=== PATIENT | female | born 1960 | race Caucasian/White ===

== ENCOUNTER 2016-06-24 18:01 | Inpatient (IN) | payer OTHER, MEDICAID ==
[~2016-06-24] VITALS: Ht 162.6 cm; Wt 77.1 kg
[2016-06-24 18:01] VITALS: BP 150/85; PULSE 79; RESP 19; TEMP 97.9; O2SAT 100
[2016-06-24 19:05] LABS: BASOPHILS % (AUTO) 0.3 % (0.0-2.0); EOSINOPHILS # (AUTO) 0.4 K/uL (0.0-0.4); EOSINOPHILS % (AUTO) 2.8 % (0.0-4.0); HEMATOCRIT 37.9 % (36-48); HEMOGLOBIN 12.7 g/dL (12.0-16.0); LYMPHOCYTES # (AUTO) 3.7 K/uL (1.0-5.5); LYMPHOCYTES % (AUTO) 26.9 % (20.5-51.5); MEAN CORPUSCULAR HEMOGLOBIN 26 pg (27-31); MEAN CORPUSCULAR HGB CONC 34 % (32-36); MEAN CORPUSCULAR VOLUME 78 fL (79.0-98.0); MONOCYTES # (AUTO) 0.7 K/uL (0.0-1.0); MONOCYTES % (AUTO) 5.3 % (1.7-9.3); NEUTROPHILS # (AUTO) 8.9 K/uL (1.8-7.7); NEUTROPHILS % (AUTO) 64.7 % (40.0-70.0); PLATELET COUNT (AUTO) 316 K/uL (130-430); RED BLOOD CELL COUNT(AUTO) 4.87 MIL/uL (4.2-6.2); RED CELL DISTRIBUTION WIDTH 13.2 % (9.0-15.0); WHITE BLOOD COUNT (AUTO) 13.7 K/uL (4.8-10.8)
[2016-06-24 19:18] LABS: CALCIUM 9.1 mg/dL (8.4-11.0); CREATININE 0.75 mg/dL (0.55-1.30); POTASSIUM 3.1 mmol/L (3.5-5.1)
[2016-06-24 19:25] LABS: ALBUMIN 3.7 g/dL (3.4-4.8); TOTAL BILIRUBIN 0.2 mg/dL (0.0-1.0); TOTAL PROTEIN, SERUM 7.2 g/dL (6.4-8.3)
[2016-06-24 20:26] LABS: BILIRUBIN,URINE NEGATIVE (NEGATIVE); BLOOD, URINE NEGATIVE (NEGATIVE); CLARITY/URINE CLEAR (CLEAR); COLOR,URINE YELLOW (YELLOW); GLUCOSE,URINE NEGATIVE (NEGATIVE); KETONES,URINE NEGATIVE (NEGATIVE); LEUKOCYTE ESTERASE ,URINE NEGATIVE (NEGATIVE); NITRITE, URINE NEGATIVE (NEGATIVE); PROTEIN URINE NEGATIVE (NEGATIVE); UROBILINOGEN,URINE 0.2 (0.2-1.0)
[2016-06-24] MEDS ORDERED: ASPIRIN 81 MG TAB.CHEW PO ONE (21:00)
[2016-06-24] MEDS ORDERED: ASPIRIN 81 MG TAB.CHEW ONE (21:17)
[2016-06-24 21:51] VITALS: BP 140/75; PULSE 63; RESP 18; TEMP 97.3; O2SAT 100
[2016-06-24] MEDS ORDERED: NOR10 PO (22:16)
[2016-06-24] MEDS ORDERED: LIP10 PO (22:16)
[2016-06-24] MEDS ORDERED: MECL-123 PO (22:16)
[2016-06-24] MEDS ORDERED: APIX5TAB PO (22:16)
[2016-06-24] MEDS ORDERED: ALBU8.5H8 INH (22:16)
[2016-06-24] MEDS ORDERED: POTASSIUM CHLORIDE 20 MEQ TAB.PRT.SR PO ONE (22:45)
[2016-06-24] MEDS: NITROGLYCERIN 0.4 MG TAB.SUBL SL PRN (23:31)
[2016-06-24 23:57] VITALS: BP 140/75; PULSE 69; RESP 16; TEMP 97.8; O2SAT 100
[2016-06-25] MEDS ORDERED: MILK OF MAGNESIA 30 ML UDC PO PRN ×2 (01:15→09:15)
[2016-06-25 02:01] VITALS: BP 140/75; PULSE 69
[2016-06-25] MEDS: NITROGLYCERIN 0.4 MG TAB.SUBL SL PRN (03:21)
[2016-06-25 03:57] VITALS: BP 121/75; PULSE 60; RESP 16; TEMP 98.6; O2SAT 98
[2016-06-25 07:20] LABS: CREATINE KINASE, TOTAL 41 U/L (26-192)
[2016-06-25] MEDS: LevALBUTEROL HCL 1.25 MG/0.5 ML *CONC.* VIAL.NEB (XOPENEX CONC.) INH SCH ×3 (07:33→23:00)
[2016-06-25] MEDS: ATORVASTATIN 10 MG TABLET PO SCH (08:55)
[2016-06-25] MEDS: ENOXAPARIN SODIUM 40 MG/0.4 ML SYRINGE SUBCUT SCH (08:56)
[2016-06-25] MEDS: amLODIPine BESYLATE 10 MG TABLET PO SCH (08:56)
[2016-06-25] MEDS: ASPIRIN 81 MG TAB.CHEW PO SCH (08:56)
[2016-06-25 11:26] VITALS: BP 125/80; PULSE 64; RESP 19; TEMP 97; O2SAT 100
[2016-06-25 15:42] VITALS: BP 121/74; PULSE 72; RESP 16; TEMP 97.8; O2SAT 100
[2016-06-25 19:45] VITALS: BP 130/75; PULSE 70; RESP 18; TEMP 98.1; O2SAT 96
[2016-06-26 00:53] VITALS: BP 133/79; PULSE 68; RESP 17; TEMP 96.6; O2SAT 100
[2016-06-26 03:36] VITALS: BP 138/64; PULSE 57; RESP 18; TEMP 97.4; O2SAT 98
[2016-06-26 07:39] LABS: CALCIUM 9.1 mg/dL (8.4-11.0); CREATININE 0.6 mg/dL (0.55-1.30); POTASSIUM 4.4 mmol/L (3.5-5.1)
[2016-06-26 07:43] LABS: BASOPHILS # (AUTO) 0.1 K/uL (0.0-0.2); BASOPHILS % (AUTO) 0.6 % (0.0-2.0); EOSINOPHILS # (AUTO) 0.4 K/uL (0.0-0.4); EOSINOPHILS % (AUTO) 4.4 % (0.0-4.0); HEMATOCRIT 36.9 % (36-48); HEMOGLOBIN 12.3 g/dL (12.0-16.0); LYMPHOCYTES # (AUTO) 2.4 K/uL (1.0-5.5); MEAN CORPUSCULAR HEMOGLOBIN 26 pg (27-31); MEAN CORPUSCULAR HGB CONC 33 % (32-36); MEAN CORPUSCULAR VOLUME 77 fL (79.0-98.0); MONOCYTES # (AUTO) 0.5 K/uL (0.0-1.0); MONOCYTES % (AUTO) 5.5 % (1.7-9.3); NEUTROPHILS # (AUTO) 6.1 K/uL (1.8-7.7); NEUTROPHILS % (AUTO) 64.5 % (40.0-70.0); PLATELET COUNT (AUTO) 296 K/uL (130-430); RED BLOOD CELL COUNT(AUTO) 4.77 MIL/uL (4.2-6.2)
[2016-06-26] MEDS: LevALBUTEROL HCL 1.25 MG/0.5 ML *CONC.* VIAL.NEB (XOPENEX CONC.) INH SCH ×2 (07:46→16:20)
[2016-06-26 08:07] VITALS: BP 119/70; PULSE 62; RESP 18; TEMP 97.4; O2SAT 98
[2016-06-26 08:18] LABS: WHITE BLOOD COUNT (AUTO) 9.5 K/uL (4.8-10.8)
[2016-06-26] MEDS: ATORVASTATIN 10 MG TABLET PO SCH (08:26)
[2016-06-26] MEDS: ASPIRIN 81 MG TAB.CHEW PO SCH (08:26)
[2016-06-26] MEDS: amLODIPine BESYLATE 10 MG TABLET PO SCH (08:26)
[2016-06-26] MEDS: ENOXAPARIN SODIUM 40 MG/0.4 ML SYRINGE SUBCUT SCH (08:27)
[2016-06-26 11:31] VITALS: BP 132/63; PULSE 69; RESP 19; TEMP 97.8; O2SAT 95
[2016-06-26 14:26] VITALS: BP 132/63; PULSE 69; RESP 19; TEMP 97.8; O2SAT 95
[2016-06-26 15:30] VITALS: BP 127/66; PULSE 65; RESP 18; TEMP 97; O2SAT 97
== END 2016-06-26 16:20 | disposition home or self-care (01) | DRG 206 ==
LOC: SED 18:01 → STU 21:32
PROVIDERS: ADMIT Family Medicine; ATTEND Family Medicine
DX: M94.0 Chondrocostal junction syndrome [Tietze] (principal); E78.5 Hyperlipidemia, unspecified; I10 Essential (primary) hypertension; J45.909 Unspecified asthma, uncomplicated; F31.9 Bipolar disorder, unspecified; Z59.0 Homelessness; Z79.899 Other long term (current) drug therapy; Z82.49 Family history of ischemic heart disease and other diseases of the circulatory system; Z83.3 Family history of diabetes mellitus; Z88.1 Allergy status to other antibiotic agents; Z88.8 Allergy status to other drugs, medicaments and biological substances
CPT/HCPCS: 36415; 71010; 80048; 80053; 80061; 81003; 81025; 82550-TC; 84484; 85025; 85379; 85610-TC; 85730-TC; 93005; 94640; 94760; 99285; J1650

== ENCOUNTER 2016-11-04 23:17 | Inpatient (IN) | payer OTHER, MEDICAID ==
[~2016-11-04] VITALS: Ht 170.2 cm; Wt 76.5 kg
[~2016-11-04 23:17] MED LIST: ALBU8.5H8 INH; APIX5TAB PO; LIP10 PO; MECL-123 PO; NOR10 PO
[2016-11-04 23:20] VITALS: BP_SYST 136
--- NOTE | 2016-11-04 23:24 | NUR ---
Placed in room 1 . Placed on steel pan form placing supervisor, blood pressure machine and pulse oximeter. To gown for exam. Side rails up. Report given to Rigoberto TELLEZ.
--- NOTE | 2016-11-04 23:25 | NUR ---
Pt states having L side pain in chest area since 1800 this evening. Pt states pain is sharp, pain scale 7/10 that radiates down to L arm. Pt denies SOB at this time. Pt able to ambulate without assistance and without signs of SOB. Pt denies any other complaints. Addendum: 11/05/16 at 0424 by [email or web address] pt states onset of chest pain occurred while at rest before ER visit.
--- NOTE | 2016-11-04 23:26 | NUR ---
ER MD Loveaw at bedside for evaluation
[2016-11-04] MEDS ORDERED: MORPHINE 4 MG/ML INJ. SYRINGE IVP ONE (23:35)
[2016-11-04] MEDS ORDERED: NITROGLYCERIN 1 INCH (GM) OINT. TP ONE (23:35)
--- NOTE | 2016-11-04 23:35 | NUR ---
attempted to place # 20 gauge angiocath to R AC. Use of asceptic technique. IV attempt unsuccessful, catheter removed and intact with gauze and tape placed over site. Patient tolerated well.
--- NOTE | 2016-11-04 23:40 | NUR ---
20 gauge angiocath placed to left AC. Use of asceptic technique. Opsite placed over site. Blood return noted. Blood for lab drawn from site. Flushed with 10 cc of normal saline. No evidence of infiltration noted. Patient tolerated well.
[2016-11-05] VITALS (7 sets, daily range): BP systolic 119–175
[2016-11-05 00:06] LABS: BASOPHILS % (AUTO) 0.3 % (0.0-2.0); EOSINOPHILS # (AUTO) 0.5 K/uL (0.0-0.4); EOSINOPHILS % (AUTO) 4.6 % (0.0-4.0); HEMATOCRIT 36.3 % (36-48); HEMOGLOBIN 12.2 g/dL (12.0-16.0); LYMPHOCYTES # (AUTO) 2.9 K/uL (1.0-5.5); LYMPHOCYTES % (AUTO) 26.5 % (20.5-51.5); MEAN CORPUSCULAR HEMOGLOBIN 26 pg (27-31); MEAN CORPUSCULAR HGB CONC 34 % (32-36); MEAN CORPUSCULAR VOLUME 78 fL (79.0-98.0); MONOCYTES # (AUTO) 0.6 K/uL (0.0-1.0); MONOCYTES % (AUTO) 5.6 % (1.7-9.3); NEUTROPHILS # (AUTO) 6.9 K/uL (1.8-7.7); PLATELET COUNT (AUTO) 312 K/uL (130-430); RED BLOOD CELL COUNT(AUTO) 4.67 MIL/uL (4.2-6.2); RED CELL DISTRIBUTION WIDTH 13.4 % (9.0-15.0); WHITE BLOOD COUNT (AUTO) 10.9 K/uL (4.8-10.8)
[2016-11-05 00:12] LABS: CALCIUM 9.6 mg/dL (8.4-11.0); CREATININE 0.71 mg/dL (0.55-1.30); POTASSIUM 3.1 mmol/L (3.5-5.1)
[2016-11-05 00:18] LABS: ALBUMIN 3.7 g/dL (3.4-4.8); TOTAL BILIRUBIN 0.2 mg/dL (0.0-1.0); TOTAL PROTEIN, SERUM 7.2 g/dL (6.4-8.3)
[2016-11-05 00:19] LABS: PROTHROMBIN TIME 10.8 SECS (9.5-12.5)
--- NOTE | 2016-11-05 00:48 | NUR ---
Medication reconciliation completed with information provided by patient. Any prior medication reconciliation on file was reviewed and corrected.
--- NOTE | 2016-11-05 01:20 | NUR ---
Patient will be admitted to care of Dr. Puga. Admitted to tele unit. Will go to room 110 A. Belongings list completed. Summary report printed. Report given to ROSALINDA Lizarraga. Addendum: 11/05/16 at 0425 by MARCOS Pt admitted to tele unit with ROSALINDA Franklin and ROSALINDA Parsons with ACLS protocols. Addendum: 11/05/16 at 0558 by MARCOS Amendment undone in ED - 11/05/16 at 0559 by MARCOS Pt admitted to tele unit with ROSALINDA Franklin and ROSALINDA Parsons via skye with ACLS protocols.
--- NOTE | 2016-11-05 01:33 | NUR ---
Admission Note Received patient from ER with diagnosis of Chest Pain. Initial Plan of Care discussed-patient verbalized understanding. Family at bedside. Oriented to room, call light, pain management and safety.
--- NOTE | 2016-11-05 01:35 | NUR ---
ADMISSION NOTE Received patient from ER via skye, received report from Rigoberto-ROSALINDA. Patient admitted with diagnosis of chest pain. Pt is alerted and oriented x4. Pt denies any chest pain, pain,sob, or any acute distress. Vital signs 97.0, 18, 149/77,76, p3kxl=74% r/a. Saline zara of left A/c #20 patent after flushed w/ NS, no s/s any infiltration, drsg cdi. Skin intact. Lung sounds clear throughout all lobes. Abdomen soft & distended, BS present. Bebo lower extrem-pulses present and no edema. All safety measures in place. Patient oriented to hospital routine, call light, toileting and safety-patient verbalized understanding. Discussed poc,all safety measures, informed not to get out bed by self or experiencing any chest pain,pain,sob,or any distress to use call light for assistance, pt verbalized understanding. Fall precaution in place. Bed alarm in place, bed low position, side rail x2. Call light w/in reach. Continue to monitor pt.
--- NOTE | 2016-11-05 03:03 | NUR ---
Consult Called Reason for consultation: Chest Pain Person who was notified: Timothy Consulting Physician: Gabriel Bland MD (Dr. Hale spa concierge) Consulting Specialty: Cardio Order by Dr Puga
--- NOTE | 2016-11-05 04:12 | NUR ---
ROUNDS; -Pt is resting. No s/s any chest pain,sob,or any acute distress noted. Vital signs stable. Fall precaution in place. Bed alarm in place, bed low position, side rail x2. Call light w/in reach. Continue to monitor pt.
--- NOTE | 2016-11-05 06:38 | NUR ---
CLOSING NOTE: DR. SCHAFFER INFORMED AND AWARED OF K=3.1, ORDERED KCL 40MEQ PO X1 -Dr. Schaffer just assessed pt at bedside and ordered KCL 40MEQ po x1. -Will give KCL 40MEQ po x1 when pharmacist puts in the EMAR. Pt is alerted and oriented. Pt denies any chest pain, pain,sob, or any acute distress. Saline zara of left A/c #20 patent after flushed w/ NS, no s/s any infiltration, drsg cdi. All safety measures in place. Fall precaution in place. Bed alarm in place, bed low position, side rail x2. Call light w/in reach. Will endorse to oncoming nurse to continue care.
[2016-11-05] MEDS ORDERED: MECLIZINE HCL 25 MG TABLET (ANITVERT) PO PRN (06:45)
[2016-11-05] MEDS ORDERED: POTASSIUM CHLORIDE 20 MEQ TAB.PRT.SR PO ONE ×2 (06:45→11:00)
[2016-11-05] MEDS ORDERED: TEMAZEPAM 15 MG CAPSULE PO PRN (07:00)
[2016-11-05] MEDS ORDERED: ACETAMINOPHEN 325 MG TABLET PO PRN (07:00)
[2016-11-05] MEDS ORDERED: NITROGLYCERIN 0.4 MG TAB.SUBL SL PRN (07:00)
[2016-11-05] MEDS ORDERED: MAG-AL HYDROX/SIMETH 30 ML UDC PO PRN (07:00)
[2016-11-05 07:26] LABS: CALCIUM 8.6 mg/dL (8.4-11.0); CREATININE 0.54 mg/dL (0.55-1.30)
--- NOTE | 2016-11-05 08:00 | NUR ---
Opening notes, seen pt in bed, pt is aaox4, denies chest pain. no sob. no distress. pt is sleepy but wakes up to light touch andvoice. bp and rr wnl, heart rate is low at 50, o2 sat is 98% on room air. call light in reach, bed in low position. safety precaution in place. will cont to monitor.
[2016-11-05] MEDS: amLODIPine BESYLATE 10 MG TABLET PO SCH ×2 (09:00→10:02)
[2016-11-05] MEDS ORDERED: NON-FORMULARY MEDICATION (Apixaban (Eliquis) 5 MG) PO SCH (09:00)
[2016-11-05] MEDS: PANTOPRAZOLE SODIUM 40 MG TAB PO SCH (09:58)
[2016-11-05] MEDS: ASPIRIN 81 MG TABLET(ECOTRIN) PO SCH (09:59)
[2016-11-05] MEDS: ATORVASTATIN 10 MG TABLET PO SCH ×2 (09:59→10:03)
--- NOTE | 2016-11-05 10:00 | NUR ---
Rounding notes, seen pt in bed, sleeping, wakes up to light touch and voice. no chest pain. call light in reach, bed in low position. safety precaution in place. will cont to monitor.
--- NOTE | 2016-11-05 12:00 | NUR ---
Rounding notes, seen pt in bed, sleeping, wakes up to light touch and voice. no chest pain. offered lunch and medications. call light in reach, bed in low position. safety precaution in place. will cont to monitor.
--- NOTE | 2016-11-05 14:00 | NUR ---
Rounding notes, seen pt in bed, sleeping, no chest pain. offered lunch and medications. call light in reach, bed in low position. safety precaution in place. will cont to monitor.
--- NOTE | 2016-11-05 15:30 | NUR ---
FOR 1600 V/S BP WAS 171/50 RN WINTER WAS NOTIFIED AND AWARE ALSO STATED THAT WAS OK.
--- NOTE | 2016-11-05 18:00 | NUR ---
Rounding Notes; Pt in bed, eating dinner, no c/o pain no sob, no distress. call light in reach, bed in low position. safety precaution in place. will cont to monitor.
--- NOTE | 2016-11-05 19:00 | NUR ---
CLOSING NOTES, PT REMAINED AAO THIS SHIFT, NO SOB, NO DISTRESS, NO C/O CHEST PAIN. NO UNTOWARD INCIDENT. DR MENDOZA SEEN PATIENT. ALL MEDS OFFERED AND TAKEN. WILL ENDORSE TO NIGHT RN.
--- NOTE | 2016-11-05 19:30 | NUR ---
initial note pt. received in bed, upset. states she asked for a new dinner tray because her meat was pink and never received one. informed pt . that dietary services are no longer here, and offered pt. a sandwich, along with other snacks that we have on the floor. pt . was upset and started crying stating that she does not want a sandwich. informed house registry rn of the situation. was able to provide me with a new dinner tray. pt. was content after being provided with a new tray. told patient i would allow her to eat her dinner and come back in 15 minutes to check her vital signs and do her assessment. pt. agreed. safety and fall precautions in place, call light in reach.
--- NOTE | 2016-11-05 19:45 | NUR ---
rn notes pt. finished her dinner tray that was provided. content, and on the phone. no s/s of sob or distress noted. pt. denies pain. vital signs assessed, all within normal limits. iv access noted to left ac, saline lock. no redness or swelling to the site. pt. states she is able to ambulate with steady gait. educated the pt. on the use of the call light and encouraged her to call for any assistance. verbalizes understanding. plan of care has been discussed with the patient. verbalizes understanding. will continue to monitor for any changes. safety and fall precautions are in place. call light in reach, bed in lowest locked position. pt. does not want the alarm on at this time.
--- NOTE | 2016-11-05 22:29 | NUR ---
rounds pt. sitting up in bed with headphones in ears. no signs of distress noted. no complaints at this time. pt. denies pain. sinus rhythm on the monitor. will continue to monitor for changes. pt. encouraged to use call light for any assistance. safety and fall precautions in place, call light in reach, bed in lowest locked position.
--- NOTE | 2016-11-06 00:03 | NUR ---
rounds pt. resting in bed watching tv on her computer. allowed patient time to express feelings and concerns. no s/s of sob or distress noted. pt. denies pain. scds at the bedside, pt. does not wish to use them. educated pt. on their use, pt still refuses. encouraged pt. to call for assistance. will cont. to monitor. safety and fall precautions in place. call light in reach.
[2016-11-06 00:07] VITALS: BP_SYST 139
--- NOTE | 2016-11-06 02:20 | NUR ---
rounds pt. resting in bed with eyes closed. chest rise and fall noted. no s/s of sob or distress. no facial grimacing indicating pain. will cont. to monitor for changes. safety and fall precautions in place. call light in reach.
[2016-11-06 04:10] VITALS: BP_SYST 134
--- NOTE | 2016-11-06 06:42 | NUR ---
closing notes pt. resting in bed at this time. no signs of distress. pt. denies pain. iv abx were given this am, no adverse reactions noted. all necessary needs were met throughout the shift. safety and fall precautions were maintained. will endorse care to am nurse. call light in reach, bed alarm on.
[2016-11-06 07:33] VITALS: BP_SYST 132
[2016-11-06 07:38] LABS: CALCIUM 9.2 mg/dL (8.4-11.0); CREATININE 0.64 mg/dL (0.55-1.30); POTASSIUM 4.5 mmol/L (3.5-5.1)
--- NOTE | 2016-11-06 07:46 | NUR ---
opening notes, seen pt in room, sitting on bed, pt is aaox3, denies pain. no sob. no distress. vitals wnl, no fever. pt eating breakfast, call light in reach, bed in low position. safety precation in place. told patient to call for assist and pain meds. will cont to monitor.
[2016-11-06] MEDS: PANTOPRAZOLE SODIUM 40 MG TAB PO SCH (08:05)
[2016-11-06] MEDS: amLODIPine BESYLATE 10 MG TABLET PO SCH (08:06)
[2016-11-06] MEDS: ATORVASTATIN 10 MG TABLET PO SCH (08:06)
[2016-11-06] MEDS: ASPIRIN 81 MG TABLET(ECOTRIN) PO SCH (08:06)
--- NOTE | 2016-11-06 10:00 | NUR ---
ROUNDING NOTES, PT IN BED, RESTING COMFORTABLY, NO C/O PAIN. NO SOB, NO DISTRESS. CALL LIGHT IN REACH, BED IN LOW POSITION. WILL CONT TO MONITOR.
--- NOTE | 2016-11-06 10:30 | NUR ---
SUZIE DC PLANNING: MET WITH Pt IN ROOM Pt REQUESTED WHETHER CM WOULD BE ABLE TO PROVIDE HER WITH FUNDING AND TRANSPORTATION TO STORE SO SHE COULD PURCHASE CLOTHING FOR ATTENDING HER SON'S [facility] THIS EVENING AT 5 P.M. IN [place]. Pt STATED SHE WOULD NEED HELP GETTING TO [facility] IN [place] [place] FOR HER DAUGHTER TO PICK HER UP TO TAKE TO [facility]; SHE SAID A BUS PASS WOULD BE HELPFUL SINCE CM EDUCATED THAT DISTANCE IS TOO FAR FOR [employer]. Pt STATED HER DAUGHTER COULD NOT PICK HER UP AT HOSPITAL BECAUSE SHE DOESN'T DRIVE DUE TO EPILEPSY; AND, HER WAS UNWILLING TO DRIVE THE EXTRA DISTANCE. CM DISCUSSED Pt's REQUEST WITH DIRECTOR/NILESH Ramon AND PROFESSOR OF PUBLIC ADMINISTRATION/MARCIAL; AND, ALSO CHECKED WITH SECURITY TO ASCERTAIN IF THERE MIGHT BE AVAILABLE CLOTHES THAT Pt MIGHT HAVE (THERE WAS NOTHING SUITABLE). SUZIE UPDATED Pt ABOUT LIMITED OPTIONS TO ASSIST WITH TRANSPORTATION AND/OR CLOTHING FOR HER. Pt STATED IT WOULD ONLY COST HER $0.75 TO GO TO [facility], CM PROVIDED Pt WITH A DOLLAR FOR THE BUS RIDE TO [facility] TO MEET HER DAUGHTER.
[2016-11-06 12:00] VITALS: BP_SYST 134
--- NOTE | 2016-11-06 12:00 | NUR ---
ROUNDING NOTES, PT IN BED, EATING LUNCH, NO C/O PAIN. NO SOB, NO DISTRESS. CALL LIGHT IN REACH, BED IN LOW POSITION. WILL CONT TO MONITOR.
--- NOTE | 2016-11-06 13:15 | NUR ---
D/C Patient Patient given medication reconciliation form and TRANSITIONAL TO HOME CARE instructions. Exit Care provided. Patient verbalized understanding. MD discussed with patient the results and treatment provided. Ambulatory with steady gait for discharge to home. Patient in stable condition, ID band removed. IV catheter removed, intact and dressing applied, no active bleeding. Rx of given. Patient educated on pain management. All belongings sent with patient.
[2016-11-06 13:38] VITALS: BP_SYST 152
--- NOTE | 2016-11-06 14:00 | NUR ---
ROUNDING NOTES, PT IN SHOWER, TAKING SHOWER.
--- NOTE | 2016-11-06 14:20 | NUR ---
PT TOOK SHOWER WITH NO UNTOWARD INCIDENT. PT NOW DRESSED UP READY TO GO HOME, WAITING FOR FAMILY TO PICK HER UP.
== END 2016-11-06 15:10 | disposition home or self-care (01) | DRG 866 ==
LOC: SED 23:17 → STU 11-05 00:52
PROVIDERS: ADMIT Internal Medicine; ATTEND Internal Medicine
DX: B34.9 Viral infection, unspecified (principal); E87.0 Hyperosmolality and hypernatremia; E87.6 Hypokalemia; I10 Essential (primary) hypertension; F31.9 Bipolar disorder, unspecified; J45.909 Unspecified asthma, uncomplicated; E78.5 Hyperlipidemia, unspecified; Z86.711 Personal history of pulmonary embolism; Z79.82 Long term (current) use of aspirin; Z88.0 Allergy status to penicillin; Z88.8 Allergy status to other drugs, medicaments and biological substances; Z88.1 Allergy status to other antibiotic agents; Z79.899 Other long term (current) drug therapy; Z81.8 Family history of other mental and behavioral disorders; Z98.891 History of uterine scar from previous surgery
CPT/HCPCS: 36415; 71010; 80048; 80053; 83880; 84484; 85025; 85379; 85610-TC; 85730-TC; 93005; 96374; 99285; J2270

== ENCOUNTER 2016-12-03 17:07 | Emergency (ER) | payer OTHER, MEDICAID ==
[~2016-12-03] VITALS: Ht 170.2 cm; Wt 77.1 kg
[2016-12-03 17:28] VITALS: BP_SYST 140
[2016-12-03 19:12] LABS: BASOPHILS % (AUTO) 0.3 % (0.0-2.0); EOSINOPHILS # (AUTO) 0.6 K/uL (0.0-0.4); EOSINOPHILS % (AUTO) 4.8 % (0.0-4.0); HEMATOCRIT 36.7 % (36-48); HEMOGLOBIN 12.1 g/dL (12.0-16.0); LYMPHOCYTES % (AUTO) 26.2 % (20.5-51.5); MEAN CORPUSCULAR HEMOGLOBIN 26 pg (27-31); MEAN CORPUSCULAR HGB CONC 33 % (32-36); MEAN CORPUSCULAR VOLUME 79 fL (79.0-98.0); MONOCYTES # (AUTO) 0.6 K/uL (0.0-1.0); MONOCYTES % (AUTO) 5.5 % (1.7-9.3); NEUTROPHILS # (AUTO) 7.3 K/uL (1.8-7.7); NEUTROPHILS % (AUTO) 63.2 % (40.0-70.0); PLATELET COUNT (AUTO) 320 K/uL (130-430); RED BLOOD CELL COUNT(AUTO) 4.66 MIL/uL (4.2-6.2); RED CELL DISTRIBUTION WIDTH 13.4 % (9.0-15.0); WHITE BLOOD COUNT (AUTO) 11.5 K/uL (4.8-10.8)
[2016-12-03 19:18] LABS: CALCIUM 8.8 mg/dL (8.4-11.0); CREATININE 0.55 mg/dL (0.55-1.30); POTASSIUM 3.9 mmol/L (3.5-5.1)
[2016-12-03 19:23] LABS: ALBUMIN 3.6 g/dL (3.4-4.8); TOTAL BILIRUBIN 0.2 mg/dL (0.0-1.0); TOTAL PROTEIN, SERUM 7.1 g/dL (6.4-8.3)
[2016-12-03 19:25] LABS: INR 0.9 (0.8-1.2); PROTHROMBIN TIME 10.1 SECS (9.5-12.5)
[2016-12-03] MEDS ORDERED: IOHEXOL 350 mgI/mL, 150 ML INFUS..BTL IV ONE (19:55)
[2016-12-03 21:50] VITALS: BP_SYST 136
== END 2016-12-03 21:50 | disposition home or self-care (01) ==
LOC: SED 17:07
DX: R07.9 Chest pain, unspecified (principal); I10 Essential (primary) hypertension; Z88.1 Allergy status to other antibiotic agents; Z88.0 Allergy status to penicillin; Z88.8 Allergy status to other drugs, medicaments and biological substances
CPT/HCPCS: 36415; 71010; 71275; 80053; 83880; 84484; 84703; 85025; 85610; 85730; 93005; 99285; Q9967

== ENCOUNTER 2017-12-30 00:11 | Emergency (ER) | payer OTHER, MEDICAID ==
[~2017-12-30] VITALS: Ht 162.6 cm; Wt 86.2 kg
[2017-12-30 00:14] VITALS: BP_SYST 161
[2017-12-30] MEDS ORDERED: NACL 0.9% 1,000 ML IV ONE (00:30)
[2017-12-30] MEDS ORDERED: ASPIRIN 81 MG TAB.CHEW PO ONE (00:30)
[2017-12-30 00:58] LABS: BASOPHILS # (AUTO) 0.1 K/uL (0.0-0.2); BASOPHILS % (AUTO) 0.9 % (0.0-2.0); EOSINOPHILS # (AUTO) 0.3 K/uL (0.0-0.4); EOSINOPHILS % (AUTO) 2.5 % (0.0-4.0); HEMATOCRIT 39.9 % (36-48); HEMOGLOBIN 13.2 g/dL (12.0-16.0); LYMPHOCYTES # (AUTO) 2.9 K/uL (1.0-5.5); LYMPHOCYTES % (AUTO) 21.7 % (20.5-51.5); MEAN CORPUSCULAR HEMOGLOBIN 26 pg (27-31); MEAN CORPUSCULAR HGB CONC 33 % (32-36); MEAN CORPUSCULAR VOLUME 79 fL (79.0-98.0); MONOCYTES # (AUTO) 0.7 K/uL (0.0-1.0); MONOCYTES % (AUTO) 4.9 % (1.7-9.3); NEUTROPHILS # (AUTO) 9.5 K/uL (1.8-7.7); PLATELET COUNT (AUTO) 343 K/uL (130-430); RED BLOOD CELL COUNT(AUTO) 5.04 MIL/uL (4.2-6.2); RED CELL DISTRIBUTION WIDTH 13.7 % (9.0-15.0); WHITE BLOOD COUNT (AUTO) 13.5 K/uL (4.8-10.8)
[2017-12-30 01:03] LABS: CREATININE 0.71 mg/dL (0.55-1.30); POTASSIUM 3.3 mmol/L (3.5-5.1)
[2017-12-30 01:08] LABS: PROTHROMBIN TIME 10.2 SECS (9.5-12.5)
[2017-12-30 01:10] LABS: ALBUMIN 3.8 g/dL (3.4-4.8); TOTAL BILIRUBIN 0.3 mg/dL (0.0-1.0)
[2017-12-30 01:55] VITALS: BP_SYST 139
== END 2017-12-30 01:55 | disposition home or self-care (01) ==
LOC: SED 00:11
DX: R07.89 Other chest pain (principal); F31.9 Bipolar disorder, unspecified; I10 Essential (primary) hypertension; E78.5 Hyperlipidemia, unspecified; Z86.711 Personal history of pulmonary embolism; Z79.899 Other long term (current) drug therapy; Z88.1 Allergy status to other antibiotic agents; Z88.0 Allergy status to penicillin; Z88.8 Allergy status to other drugs, medicaments and biological substances
CPT/HCPCS: 36415; 71045; 80053; 82550; 84484; 85025; 85610; 93005; 99285; J7030

== ENCOUNTER 2018-12-13 20:41 | Emergency (ER) | payer OTHER, MEDICAID ==
[~2018-12-13] VITALS: Ht 162.6 cm; Wt 79.4 kg
[2018-12-13 20:49] VITALS: BP_SYST 151
--- NOTE | 2018-12-13 21:03 | NUR ---
Patient triaged and placed in waiting room. VSS and patient appears in no acute distress at this time. Accompanied by self, awaiting available bed, and MD notified of need for MSE.
--- NOTE | 2018-12-13 21:33 | NUR ---
Patient to ER bed 2 to gown for evaluation. Side rails up.
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
--- NOTE | 2018-12-13 21:46 | NUR ---
ER Dr. Thompson at bedside examining patient.
[2018-12-13] MEDS ORDERED: ACETAMINOPHEN 325 MG TABLET PO ONE (22:00)
--- NOTE | 2018-12-14 | NUR ---
Spoke to Id[place] at [facility], will dispatcher automobile rental to speak to patient.
--- NOTE | 2018-12-14 00:10 | NUR ---
Updated pt that [employer] [facility] will be sending an offcier to speak w/ pt. Pt is in agreement, will cont to monitor.
--- NOTE | 2018-12-14 01:12 | NUR ---
[employer] [employer] at bedside speaking w/ pt.
--- NOTE | 2018-12-14 01:25 | NUR ---
[facility] told the front office associate that the pt wasn't telling them anything so they arent able to do anything. [employer] [employer] left at this time. Will cont to monitor pt.
[2018-12-14 01:45] VITALS: BP_SYST 151
--- NOTE | 2018-12-14 01:45 | NUR ---
Patient given written and verbal discharge instructions and verbalizes understanding. ER MD Dr. Thompson discussed with patient the results and treatment provided. Patient in stable condition. ID arm band removed. Patient educated on pain management and to follow up with PMD in 2-3 days. Pain Scale 0/10. Opportunity for questions provided and answered. Medication side effect fact sheet provided.
--- NOTE | 2018-12-14 01:45 | NUR ---
Pt states she has no money and no ride home. Will speak to oracle data warehouse developer and arrange for a ride.
--- NOTE | 2018-12-14 02:10 | NUR ---
Able to arrange a ride for pt w/ warehouse technician. Pt able to ambulate w/ steady gait to cab, no signs of acute distress or discomfort noted. Pt was placed in cab and money was given to road oiling truck driver.
== END 2018-12-14 01:45 | disposition home or self-care (01) ==
LOC: SED 20:41
DX: S09.90XA Unspecified injury of head, initial encounter (principal); E78.5 Hyperlipidemia, unspecified; Z90.89 Acquired absence of other organs; Z88.0 Allergy status to penicillin; Z88.1 Allergy status to other antibiotic agents; Z88.8 Allergy status to other drugs, medicaments and biological substances; Z79.899 Other long term (current) drug therapy; Y04.0XXA Assault by unarmed brawl or fight, initial encounter; Y93.89 Activity, other specified; Y92.89 Other specified places as the place of occurrence of the external cause; Y99.8 Other external cause status
CPT/HCPCS: 70450-TC; 99284

== ENCOUNTER 2018-12-28 19:25 | Emergency (ER) | payer OTHER, MEDICAID ==
[~2018-12-28] VITALS: Ht 162.6 cm; Wt 79.4 kg
[2018-12-28 20:34] VITALS: BP_SYST 143
--- NOTE | 2018-12-28 21:30 | NUR ---
Patient left without being seen. No further treatment provided. ER MD aware
--- NOTE | 2018-12-28 21:30 | NUR ---
Pt called in x 3, no answer
== END 2018-12-28 21:30 | disposition still patient (30) ==
LOC: SED 19:25
DX: R51 Headache (principal); R42 Dizziness and giddiness; I10 Essential (primary) hypertension; E78.5 Hyperlipidemia, unspecified; Z88.0 Allergy status to penicillin; Z88.1 Allergy status to other antibiotic agents; Z88.8 Allergy status to other drugs, medicaments and biological substances; Z79.899 Other long term (current) drug therapy; Z53.21 Procedure and treatment not carried out due to patient leaving prior to being seen by health care provider

== ENCOUNTER 2019-06-09 16:11 | Emergency (ER) | payer OTHER, MEDICAID ==
[~2019-06-09] VITALS: Ht 162.6 cm; Wt 78.0 kg
[2019-06-09 16:11] VITALS: BP_SYST 147
--- NOTE | 2019-06-09 16:14 | NUR ---
Patient triaged and placed in waiting room. VSS and patient appears in no acute distress at this time. Accompanied by SELF, awaiting available bed, and MD notified of need for MSE.
--- NOTE | 2019-06-09 18:23 | NUR ---
BROUGHT BACK TO BED #8 AND REPORT GIVEN TO GINI
--- NOTE | 2019-06-09 19:20 | NUR ---
ER Dr. Merritt at bedside examining patient.
--- NOTE | 2019-06-09 19:25 | NUR ---
Pt has hx of PE, HTN, hyperlipidemia adn psych C/O mild SOB, cough, nausea, and chills. Pt was seen in an urgent care and diagnosed with pnuemonia and reports being compliant with antibiotic regimen with no relief. Pt shows equal chest rise/fall or no accessory muscle use. Pt denies any chest pain, vomiting, blood in cough or any other symptoms at this time. Will continue to monitor.
--- NOTE | 2019-06-09 19:41 | NUR ---
ER Dr. Castro at bedside examining patient.
[2019-06-09 20:41] VITALS: BP_SYST 139
--- NOTE | 2019-06-09 20:42 | NUR ---
Patient given written and verbal discharge instructions and verbalizes understanding. ER MD discussed with patient the results and treatment provided. Patient in stable condition. ID arm band removed. Rx of Mupirocin given. Patient educated on pain management and to follow up with PMD. Pain Scale 0. Opportunity for questions provided and answered. Medication side effect fact sheet provided.
== END 2019-06-09 20:41 | disposition home or self-care (01) ==
LOC: SED 16:11
DX: J20.9 Acute bronchitis, unspecified (principal); L01.00 Impetigo, unspecified; I10 Essential (primary) hypertension; Z88.0 Allergy status to penicillin; Z88.1 Allergy status to other antibiotic agents; Z88.8 Allergy status to other drugs, medicaments and biological substances; Z79.899 Other long term (current) drug therapy
CPT/HCPCS: 71045; 99283

== ENCOUNTER 2019-11-09 02:23 | Emergency (ER) | payer OTHER, MEDICAID ==
[~2019-11-09] VITALS: Ht 162.6 cm; Wt 79.4 kg
--- NOTE | 2019-11-09 02:23 | NUR ---
PT bib ALS from extended stay hotel, a&o x4 complaining of sharp throbbing chest pain on left side radiating down left arm rated at 6 out of 10. Pt reports chest pain started at 6pm, went to [facility] at 10[facility] and left because she was not happy with their service. Pt states chest pain has been constant. Pt denies SOB, cough, n/v. ALS [employer] reports giving patient a total of 4 81mg Aspirin and nitroglycerin. Pt reports pain went from an 8 to a 6/10 after aspirin and nitro given in field. Pt hx of high blood pressure, high cholesterol, and asthma. Pt sx appendectomy, tonsilectomy, hip surgery, 2 c-sections. Pt does not have any other medical complaints at this time, will continue to monitor.
--- NOTE | 2019-11-09 02:23 | NUR ---
Placed in room 4 . Placed on air sampling and monitoring, blood pressure machine and pulse oximeter. To gown for exam. Side rails up. Report given to DUY TELLEZ.
[2019-11-09 02:24] VITALS: BP_SYST 167
--- NOTE | 2019-11-09 02:24 | NUR ---
ER at bedside examining patient.
--- NOTE | 2019-11-09 02:30 | NUR ---
# 22 gauge angiocath placed to LAC. Use of asceptic technique. Opsite placed over site. Blood return noted. Blood, blood cultures, and lactic for lab drawn from site. Flushed with 10 cc of normal saline. No evidence of infiltration noted. Patient tolerated well.
--- NOTE | 2019-11-09 02:42 | NUR ---
XRAY AT BEDSIDE.
[2019-11-09] MEDS ORDERED: NITROGLYCERIN 0.4 MG TAB.SUBL SL ONE (02:45)
[2019-11-09 02:46] LABS: BASOPHILS # (AUTO) 0.1 K/uL (0.0-0.2); BASOPHILS % (AUTO) 0.6 % (0.0-2.0); EOSINOPHILS # (AUTO) 0.4 K/uL (0.0-0.4); EOSINOPHILS % (AUTO) 2.8 % (0.0-4.0); HEMATOCRIT 39.2 % (36-48); HEMOGLOBIN 13.1 g/dL (12.0-16.0); LYMPHOCYTES # (AUTO) 3.6 K/uL (1.0-5.5); MEAN CORPUSCULAR HEMOGLOBIN 27 pg (27-31); MEAN CORPUSCULAR HGB CONC 33 % (32-36); MEAN CORPUSCULAR VOLUME 80 fL (79.0-98.0); MONOCYTES # (AUTO) 0.7 K/uL (0.0-1.0); MONOCYTES % (AUTO) 5.2 % (1.7-9.3); NEUTROPHILS # (AUTO) 8.1 K/uL (1.8-7.7); NEUTROPHILS % (AUTO) 63.4 % (40.0-70.0); PLATELET COUNT (AUTO) 324 K/uL (130-430); RED BLOOD CELL COUNT(AUTO) 4.92 MIL/uL (4.2-6.2); RED CELL DISTRIBUTION WIDTH 13.8 % (9.0-15.0); WHITE BLOOD COUNT (AUTO) 12.8 K/uL (4.8-10.8)
--- NOTE | 2019-11-09 02:52 | NUR ---
FIRST NITROGLYCERIN TAB GIVEN. BP 159/85 HR 73 O2 98%. PT REPORTS 6/10 PAIN.
[2019-11-09 02:53] LABS: BILIRUBIN,URINE NEGATIVE (NEGATIVE); BLOOD, URINE NEGATIVE (NEGATIVE); CLARITY/URINE CLEAR (CLEAR); COLOR,URINE YELLOW (YELLOW); GLUCOSE,URINE NEGATIVE (NEGATIVE); KETONES,URINE NEGATIVE (NEGATIVE); LEUKOCYTE ESTERASE ,URINE TRACE (NEGATIVE); NITRITE, URINE NEGATIVE (NEGATIVE); PROTEIN URINE NEGATIVE (NEGATIVE); UROBILINOGEN,URINE 0.2 (0.2-1.0)
--- NOTE | 2019-11-09 02:57 | NUR ---
PT REPORTS PAIN WENT DOWN TO A 5/10. BP 154/91 HR 71 O2 97 . SECOND NITROGLYCERIN TABLET GIVEN SUBLINGUALLY.
[2019-11-09 03:00] LABS: CALCIUM 8.7 mg/dL (8.4-11.0); CREATININE 0.75 mg/dL (0.55-1.30); POTASSIUM 3.6 mmol/L (3.5-5.1)
[2019-11-09 03:01] LABS: BACTERIA,URINE FEW /HPF (None Seen); RBC,URINE 0-3 /HPF (0-3); WBC,URINE 0-3 /HPF (0-3)
--- NOTE | 2019-11-09 03:02 | NUR ---
PT REPORTS PAIN IS STILL A 5 OUT OF 10. BP 141/99 HR 81 O2 98. THIRD NITROGLYCERIN TABLET GIVEN SUBLINGUALLY. WILL CONTINUE TO MONITOR.
[2019-11-09 03:04] LABS: PROTHROMBIN TIME 9.9 SECS (9.5-12.5)
[2019-11-09 03:07] LABS: ALBUMIN 3.7 g/dL (3.4-4.8); TOTAL BILIRUBIN 0.2 mg/dL (0.0-1.0)
--- NOTE | 2019-11-09 03:29 | NUR ---
PATIENT REPORTS PAIN AT 4 OUT OF 10. MD AWARE.
--- NOTE | 2019-11-09 03:30 | NUR ---
PATIENT RESTING IN BED WITH EVEN AND UNLABORED BREATHING. VITAL SIGNS STABLE.
[2019-11-09] MEDS ORDERED: KETOROLAC TROMETHAMINE 30 MG VIAL IVP ONE (03:45)
[2019-11-09] MEDS ORDERED: DIPHENHYDRAMINE INJ 50 MG/ML VIAL IVP ONE (04:00)
[2019-11-09] MEDS ORDERED: MORPHINE 2 MG/ML INJ. SYRINGE IVP ONE (04:00)
--- NOTE | 2019-11-09 04:15 | NUR ---
TORADOL 30MG IV GIVEN FOR PATIENTS 4 OUT OF 10 PAIN. PATIENT RESTING COMFORTABLY IN BED WITHOUT ANY SIGNS OF DISTRESS.
--- NOTE | 2019-11-09 04:50 | NUR ---
PATIENT REFUSED MORPHINE AND BENADRYL. AWARE.
[2019-11-09 05:20] VITALS: BP_SYST 113
--- NOTE | 2019-11-09 05:20 | NUR ---
Patient given written and verbal discharge instructions and verbalizes understanding. ER MD discussed with patient the results and treatment provided. Patient in stable condition. ID arm band removed. IV catheter removed intact and dressing applied, no active bleeding. Rx of IBUPROFEN given. Patient educated on pain management and to follow up with PMD. Pain Scale 3/10. Opportunity for questions provided and answered. Medication side effect fact sheet provided.
== END 2019-11-09 05:20 | disposition home or self-care (01) ==
LOC: SED 02:23
DX: R07.89 Other chest pain (principal); J45.909 Unspecified asthma, uncomplicated; E78.5 Hyperlipidemia, unspecified; Z79.899 Other long term (current) drug therapy; Z88.1 Allergy status to other antibiotic agents; Z88.2 Allergy status to sulfonamides
CPT/HCPCS: 36415; 71045; 80053; 81000; 83880; 84484; 85025; 85610; 85730; 93005; 96374; 99285; J1885

== ENCOUNTER 2020-03-05 00:04 | Inpatient (IN) | payer OTHER, MEDICAID, SELFPAY ==
[~2020-03-05] VITALS: Ht 162.6 cm; Wt 77.8 kg
[2020-03-05 00:07] VITALS: BP_SYST 165
--- NOTE | 2020-03-05 00:10 | NUR ---
Placed in room 4 . Placed on media monitor, blood pressure machine and pulse oximeter. To gown for exam. Side rails up. Report given to DUY TELLEZ.
--- NOTE | 2020-03-05 00:10 | NUR ---
ER Dr. SILVA at bedside examining patient.
--- NOTE | 2020-03-05 00:15 | NUR ---
PT BIB ALS FROM 12/06, A&O X4, C/O OF SHARP, RADIATING TO LEFT SIDE CHEST PAIN X7 DAYS AND GENERAL WEAKNESS. PT WAS AT [facility] & LEFT WITHOUT BEING SEEN FOR SIMILAR COMPLAINTS. PT WAS GIVEN 162MG OF ASPIRIN AND 1 NITROSTAT BY FIRE IN ROUTE TO HOSPITAL.
[2020-03-05] MEDS ORDERED: ASPIRIN 81 MG TAB.CHEW PO ONE (00:30)
--- NOTE | 2020-03-05 00:34 | NUR ---
MEDCIATED WITH ASPIRIN 162MG PO CHEWABLE PER MD ORDER. PT TOLERATED WELL.
--- NOTE | 2020-03-05 00:35 | NUR ---
LAB AT BEDSIDE DRAWING LABS.
--- NOTE | 2020-03-05 00:39 | NUR ---
PT AMBULATED TO RESTROOM WITH STEADY GAIT.
--- NOTE | 2020-03-05 00:44 | NUR ---
XRAY AT BEDSIDE FOR CHEST XRAY.
[2020-03-05 00:47] LABS: HEMOGLOBIN 10.7 g/dL (12.0-16.0); RED CELL DISTRIBUTION WIDTH 13.8 % (9.0-15.0)
[2020-03-05 00:49] LABS: BILIRUBIN,URINE NEGATIVE (NEGATIVE); BLOOD, URINE NEGATIVE (NEGATIVE); CLARITY/URINE CLEAR (CLEAR); COLOR,URINE YELLOW (YELLOW); GLUCOSE,URINE NEGATIVE (NEGATIVE); KETONES,URINE NEGATIVE (NEGATIVE); LEUKOCYTE ESTERASE ,URINE NEGATIVE (NEGATIVE); NITRITE, URINE NEGATIVE (NEGATIVE); PROTEIN URINE NEGATIVE (NEGATIVE); UROBILINOGEN,URINE 0.2 (0.2-1.0)
[2020-03-05 00:52] LABS: BASOPHILS # (AUTO) 0.1 K/uL (0.0-0.2); BASOPHILS % (AUTO) 0.5 % (0.0-2.0); EOSINOPHILS # (AUTO) 0.5 K/uL (0.0-0.4); EOSINOPHILS % (AUTO) 4.8 % (0.0-4.0); HEMATOCRIT 31.8 % (36-48); LYMPHOCYTES # (AUTO) 2.5 K/uL (1.0-5.5); LYMPHOCYTES % (AUTO) 22.5 % (20.5-51.5); MEAN CORPUSCULAR HEMOGLOBIN 27 pg (27-31); MEAN CORPUSCULAR HGB CONC 34 % (32-36); MEAN CORPUSCULAR VOLUME 80 fL (79.0-98.0); MONOCYTES # (AUTO) 0.6 K/uL (0.0-1.0); MONOCYTES % (AUTO) 5.4 % (1.7-9.3); NEUTROPHILS # (AUTO) 7.4 K/uL (1.8-7.7); NEUTROPHILS % (AUTO) 66.8 % (40.0-70.0); PLATELET COUNT (AUTO) 378 K/uL (130-430); RED BLOOD CELL COUNT(AUTO) 3.98 MIL/uL (4.2-6.2); WHITE BLOOD COUNT (AUTO) 11.1 K/uL (4.8-10.8)
--- NOTE | 2020-03-05 00:55 | NUR ---
Patient transported to radiology via WHEELCHAIR, accompanied by
[2020-03-05 00:59] LABS: PROTHROMBIN TIME 9.8 SECS (9.5-12.5)
[2020-03-05 01:03] LABS: CALCIUM 8.5 mg/dL (8.4-11.0); CREATININE 0.71 mg/dL (0.55-1.30); POTASSIUM 3.8 mmol/L (3.5-5.1)
--- NOTE | 2020-03-05 01:05 | NUR ---
PATIENT RETURNED FROM RADIOLOGY.
[2020-03-05 01:09] LABS: ALBUMIN 3.4 g/dL (3.4-4.8); TOTAL BILIRUBIN 0.3 mg/dL (0.0-1.0)
[2020-03-05] MEDS ORDERED: MORPHINE 2 MG/ML INJ. SYRINGE IVP ONE (01:15)
--- NOTE | 2020-03-05 01:20 | NUR ---
CT WITH CONTRAST CONSENT FROM SIGNED AND PLACED IN CHART.
--- NOTE | 2020-03-05 01:40 | NUR ---
Patient transported to radiology via walking, accompanied by
[2020-03-05] MEDS ORDERED: IOHEXOL 350 mgI/mL, 150 ML INFUS..BTL IV ONE (01:47)
--- NOTE | 2020-03-05 02:01 | NUR ---
PATIENT RETURNED FROM RADIOLOGY.
--- NOTE | 2020-03-05 02:40 | NUR ---
Patient's code status is FULL CODE paperwork completed and placed in chart.
--- NOTE | 2020-03-05 02:40 | NUR ---
COVID SWAB COLLECTED AND SENT TO LAB.
[2020-03-05] MEDS ORDERED: ASPI-1155 PO (02:46)
[2020-03-05] MEDS ORDERED: METO25TA6 PO (02:46)
--- NOTE | 2020-03-05 02:46 | NUR ---
Medication reconciliation completed with information provided by PATIENT. Any prior medication reconciliation on file was reviewed and corrected.
--- NOTE | 2020-03-05 03:33 | NUR ---
PATIENT RESTING COMFORTABLY IN BED. NO SIGNS OF ACUTE DISTRESS. EVEN AND UNLABORED BREATHING VISUALIZED.
--- NOTE | 2020-03-05 04:14 | NUR ---
RECEIVED ADMIT ORDERS FROM DR. YOST.
--- NOTE | 2020-03-05 04:16 | NUR ---
SPOKE WITH ROSALINDA FONSECA TO REQUEST TELE BED.
--- NOTE | 2020-03-05 04:38 | NUR ---
Patient will be admitted to care of [facility]. Admitted to TELE unit. Will go to room 118A. Belongings list completed. Complete and up to date summary report printed. SBAR report to be given at bedside with opportunity for questions.
--- NOTE | 2020-03-05 04:42 | NUR ---
Transfer to TELE via ACLS protocol. Licensed nurse present. IV present no signs or symptoms of infiltration.
--- NOTE | 2020-03-05 04:50 | NUR ---
Admission Note Received patient from ER with diagnosis of r/o TN. Initial Plan of Care discussed-patient verbalized understanding. Oriented to room, call light, pain management, handwashing and safety. Addendum: 03/05/20 at 0519 by [employer] linker up CORRECTION FOR 0517 (03-05-20) NOTE: ADD: diagnosis of Chest Pain. STRIKE: diagnosis of r/o TN.
[2020-03-05 05:17] VITALS: BP_SYST 134
--- NOTE | 2020-03-05 05:21 | NUR ---
Consultation Paged Reason for Consultation: Chest Pain Was consult called: Y Person who was notified: Kar Consulting Physician: Feng Burnham Ordering Physician: Puneet Burnham
[2020-03-05 08:00] VITALS: BP_SYST 132
--- NOTE | 2020-03-05 09:20 | NUR ---
OPENING NOTES RECEIVED REPORT FROM ROSALINDA ANDRE. PT RESTING IN BED, CHEST RISE AND FALL NOTED. EASILY AWAKEN. NONLABORED BREATHING NOTED ON ROOM AIR, TOLERATING WELL. PT DENIES PAIN AND SOB AT THIS TIME. NO ACUTE DISTRESS NOTED. IV LINE INTACT AND PATENT, NO SIGNS OF INFILTRATION NOTED. NO ACUTE DISTRESS NOTED. ALL NEEDS MET. CALL LIGHT IN REACH. FALL AND ASPIRATION PRECAUTIONS IN PLACE. CONTINUE TO MONITOR.
--- NOTE | 2020-03-05 11:30 | NUR ---
ROUNDS PT RESTING IN BED, CHEST RISE AND FALL NOTED. EASILY AWAKEN. NO ACUTE DISTRESS NOTED. ALL NEEDS MET. CALL LIGHT IN REACH. FALL AND ASPIRATION PRECAUTIONS IN PLACE. CONTINUE TO MONITOR.
[2020-03-05 12:47] VITALS: BP_SYST 134
--- NOTE | 2020-03-05 14:30 | NUR ---
ROUNDS PT RESTING IN BED, CHEST RISE AND FALL NOTED. EASILY AWAKEN. PT DENIES CHEST PAIN AND SOB AT THIS TIME. CONTINUE TO MONITOR.
[2020-03-05 17:03] VITALS: BP_SYST 127
[2020-03-05] MEDS ORDERED: ONDANSETRON HCL 4 MG/2 ML VIAL IVP PRN (17:45)
[2020-03-05] MEDS ORDERED: HYDROcodone/ACETAMIN 10-325 MG TAB PO PRN (17:45)
[2020-03-05] MEDS ORDERED: LORazepam 2 MG/ML VIAL IVP PRN (17:45)
[2020-03-05] MEDS ORDERED: HYDROcodone/ACETAMIN 5-325 MG TAB (NORCO/ VICODIN) PO PRN (17:45)
[2020-03-05] MEDS ORDERED: NALOXONE HCL 0.4 MG/ML AMP (NARCAN) IVP PRN ×2 (17:45)
--- NOTE | 2020-03-05 17:59 | NUR ---
ROUNDS PT AWAKE AND ALERT IN BED. NO ACUTE DISTRESS NOTED. ALL NEEDS MET. CALL LIGHT IN REACH. CONTINUE TO MONITOR.
--- NOTE | 2020-03-05 17:59 | NUR ---
CONSULTATION PAGED REASON FOR CONSULTATION:LEUKOCYTOSIS WAS CONSULT CALLED?Y PERSON WHO WAS NOTIFIED:DUSTY CONSULTING PHYSICIAN:HORTENCIA DASH FENDER MECHANIC SPECIALTY:ID FENDER MECHANIC PHONE NUMBER:[phone] REQUESTING PHYSICIAN:LISA BARBA
[2020-03-05] MEDS: ACETAMINOPHEN 325 MG TABLET PO PRN (18:32)
--- NOTE | 2020-03-05 18:33 | NUR ---
PT C/O PAIN 08/05 ADMINISTERED PAIN MEDICATIONS ORDERED PER MD, EDUCATION GIVEN, TOLERATED WELL. PT DENIES SOB AT THIS TIME. CONTINUE TO MONITOR
--- NOTE | 2020-03-05 19:00 | NUR ---
CLOSING NOTES PT AWAKE AND ALERT, SITTING UP IN BED, EATING DINNER. NONLABORED BREATHING NOTED ON ROOM AIR. NO ACUTE DISTRESS NOTED. IV LINE INTACT AND PATENT, NO SIGNS OF INFILTRATION NOTED. ALL NEEDS MET. CALL LIGHT IN REACH. FALL AND ASPIRATION PRECAUTIONS IN PLACE. BED LOCKED AND IN LOWEST POSITION. ENDORSED CARE TO ROSALINDA HIGGINBOTHAM.
--- NOTE | 2020-03-05 19:32 | NUR ---
Opening note Received patient awake, resting in bed, watching t.v. on her tablet. No distress noted and non labored breathing on room air. IV is SL to RAC. Reports no chest pain. Bed is locked in lowest position, side rails up 2x, call light w/in reach and bed alarm is not on; she ambulates and demonstrates use of call light. Updated board and reviewed plan of care.
[2020-03-05 20:00] VITALS: BP_SYST 149
[2020-03-05] MEDS: METOPROLOL TARTRATE 25 MG TABLET PO SCH (20:46)
[2020-03-05] MEDS: APIXABAN 2.5 MG TABLET PO SCH (20:49)
--- NOTE | 2020-03-05 20:55 | NUR ---
Meds Due meds given; patient took tablets with water. Reviewed side effects, she verbalized understanding and adds that she has not had a reaction to Eliquis.
[2020-03-05] MEDS ORDERED: MECLIZINE HCL 25 MG TABLET (ANITVERT) PO PRN (21:00)
[2020-03-05] MEDS: NORMAL SALINE 5 ML DISP.SYRIN IVF SCH ×2 (21:03→21:04)
--- NOTE | 2020-03-05 22:48 | NUR ---
rounds patient is resting w/eyes closed. No distress noted, non labored breathing.
--- NOTE | 2020-03-05 23:55 | NUR ---
Rounds, V/S Patient resting w/eyes closed and momentarily awakened for V/S which are stable; presently she denies chest pain.
[2020-03-06] VITALS: BP_SYST 122
--- NOTE | 2020-03-06 02:25 | NUR ---
Itching / Paged Dr. Camara Patient is reporting itchiness to her abdomen, she has a visible rash on abdomen. Charge nurse ROSALINDA Preston is aware. Paged Dr. Reji Camara, awaiting call back.
--- NOTE | 2020-03-06 02:35 | NUR ---
MRSA MRSA of nares done, explained procedure to patient, she agreed and I collected sample. Will send to lab.
--- NOTE | 2020-03-06 03:46 | NUR ---
Dr Reji Camara Updtated-informed Dr. Camara patient is experiencing itching/rash on abdomen. TORB medication order for Benadryl 50mg PO Q6P itchiness.
[2020-03-06] MEDS ORDERED: DIPHENHYDRAMINE HCL 50 MG CAPSULE PO PRN (04:00)
--- NOTE | 2020-03-06 05:00 | NUR ---
Benadryl, picture Benadryl given for itchiness as ordered; reviewed side effects; she verbalized understanding. Wound picture of abdomen taken.
[2020-03-06] MEDS: NORMAL SALINE 5 ML DISP.SYRIN IVF SCH ×6 (05:02→21:01)
[2020-03-06 05:10] VITALS: BP_SYST 127
[2020-03-06] MEDS: ACETAMINOPHEN 325 MG TABLET PO PRN ×2 (05:13→20:59)
--- NOTE | 2020-03-06 05:13 | NUR ---
Tylenol V/S taken and stable; patient reported chest pain 3/10 without radiation. Tylenol given for mild pain as ordered. Will continue to monitor. Call light w/in reach.
--- NOTE | 2020-03-06 06:45 | NUR ---
closing note Patient resting in bed w/ eyes closed, no distress noted and non labored breathing on room air. IV is SL to RAC. Bed is locked in lowest position, side rails up 2x, call light w/in reach and bed alarm is not on; she ambulates and demonstrates use of call light. Needs met throughout shift, will endorse care to incoming nurse.
--- NOTE | 2020-03-06 07:10 | NUR ---
OPENING NOTES RECEIVED BEDSIDE SBAR FROM NIGHT RN, PATIENT IN BED, RESPIRATIONS EVEN, NON LABORED, BED IN LOW AND LOCKED POSITION, CALL LIGHT WITHIN REACH
--- NOTE | 2020-03-06 07:30 | NUR ---
Lab draw Patient agreed to lab draw and tech at bedside for draw
[2020-03-06] MEDS ORDERED: ALBUTEROL SULFATE 0.083% 2.5 MG/3 ML VIAL.NEB INH PRN (08:00)
--- NOTE | 2020-03-06 08:00 | NUR ---
NURSE NOTE OBTAINED VS, PATIENT IN BED, RESPIRATIONS EVEN NON LABORED, BED IN LOW AND LOCKED POSITION CALL LIGHT WITHIN REACH, DENIES ANY PAIN OR DISCOMFORT
[2020-03-06] MEDS: ASPIRIN 81 MG TAB.CHEW PO SCH (08:32)
[2020-03-06] MEDS: METOPROLOL TARTRATE 25 MG TABLET PO SCH ×2 (08:33→20:50)
[2020-03-06] MEDS: amLODIPine BESYLATE 10 MG TABLET PO SCH (08:33)
[2020-03-06] MEDS: ATORVASTATIN 10 MG TABLET PO SCH (08:33)
[2020-03-06] MEDS: APIXABAN 2.5 MG TABLET PO SCH ×2 (08:36→20:55)
--- NOTE | 2020-03-06 09:30 | NUR ---
NURSE NOTE PATIENT IN BED, RESPIRATIONS EVEN NON LABORED, EYES CLOSED, BED IN LOW AND LOCKED POSITION, CALL LIGHT WITHIN REACH,
--- NOTE | 2020-03-06 10:45 | NUR ---
MD ROUNDS DR YOST BEDSIDE EXAMINING PATIENT
--- NOTE | 2020-03-06 12:00 | NUR ---
nurse note provided patient with lunch, in bed, eyes closed, respirations even, non labored, bed in low and locked position call light within reach
[2020-03-06 12:25] VITALS: BP_SYST 129
[2020-03-06] MEDS ORDERED: PERMETHRIN 5% 60 GM CREAM.GM. TP ONE (13:00)
[2020-03-06] MEDS ORDERED: IVERMECTIN 3 MG TABLET PO ONE (13:00)
--- NOTE | 2020-03-06 14:00 | NUR ---
NURSE NOTE PATIENT IN BED, RESPIRATIONS EVEN, NON LABORED BED IN LOW AND LOCKED POSITION, CALL LIGHT WITHIN REACH, ADMINISTERED MEDICATIONS, PATIENT DENIES ANY PAIN OR DISCOMFORT
--- NOTE | 2020-03-06 16:09 | NUR ---
nurse note patient in bed, respirations even non labored, bed in low and locked position, call light within reach, patient states "itching is much better"
[2020-03-06 16:16] VITALS: BP_SYST 113
--- NOTE | 2020-03-06 18:00 | NUR ---
nurse note provided patient with dinner tray, patient in bed, sitting watching tv, respirations even, non labored, bed in low and locked position, call light within reach
[2020-03-06] MEDS ORDERED: PERM60CR18 TP (18:04)
[2020-03-06] MEDS ORDERED: IVER3TAB PO (18:04)
--- NOTE | 2020-03-06 19:15 | NUR ---
closing notes PROVIDED BEDSIDE SBAR TO NIGHT RN, PATIENT IN BED, RESPIRATIONS EVEN NON LABORED, BED IN LOW AND LOCKED POSITION, ENDORSED CARE TO NIGHT RN
[2020-03-06 19:50] VITALS: BP_SYST 150
--- NOTE | 2020-03-06 19:50 | NUR ---
INITIAL NOTE AT INITIAL ASSESSMENT, PATIENT IS RESTING IN BED, STABLE, NO SIGNS OF RESPIRATORY DISTRESS. PATIENT VERBALIZES NO PAIN. PLAN OF CARE FOR THE EVENING IS COMMUNICATED WITH THE PATIENT. PATIENT DEMONSTRATES CORRECT USAGE OF CALL LIGHT AT THIS TIME. BED IS LOCKED, ALARMED, AND AT THE LOWEST LEVEL. FALL, SAFETY, AND RESPIRATORY PRECAUTIONS WILL BE TAKEN THROUGHOUT THE SHIFT.
--- NOTE | 2020-03-06 21:50 | NUR ---
ANXIETY NOTE PATIENT IS HAVING A PANIC ATTACK, DESPITE EFFORTS TO CALM DOWN PATIENT BY THREE DIFFERENT NURSES, PATIENT REMAINED VERY ANXIOUS AND AGITATED. PRN MEDICATION IS GIVEN AT THIS TIME FOR ANXIETY AND AGITATION. WILL REASSESS IF PRN MEDICATION GIVEN WAS EFFECTIVE. CALL LIGHT PLACED WITHIN REACH. BED IS LOCKED, ALARMED, AND AT THE LOWEST LEVEL.
--- NOTE | 2020-03-06 23:50 | NUR ---
NOTE PRN MEDICATION GIVEN FOR ANXIETY WAS EFFECTIVE. PATIENT IS NOW CALMLY RESTING IN BED, STABLE, NO SIGNS OF RESPIRATORY DISTRESS. CALL LIGHT IS WITHIN REACH. BED IS LOCKED, ALARMED, AND AT THE LOWEST LEVEL.
--- NOTE | 2020-03-07 01:50 | NUR ---
NOTE PATIENT IS SLEEPING, STABLE, NO SIGNS OF RESPIRATORY DISTRESS. CALL LIGHT IS WITHIN REACH. BED IS LOCKED, ALARMED, AND AT THE LOWEST LEVEL.
--- NOTE | 2020-03-07 03:50 | NUR ---
NOTE PATIENT IS SLEEPING, STABLE, NO SIGNS OF RESPIRATORY DISTRESS. CALL LIGHT IS WITHIN REACH. BED IS LOCKED, ALARMED, AND AT THE LOWEST LEVEL.
--- NOTE | 2020-03-07 05:30 | NUR ---
Israel CHAMPAGNE ROUNDS DR. RITIKA Wood IS AT BEDSIDE MAKING ROUNDS, HE WAS MADE AWARE THAT PATIENT CONFESSED SHE IS HOMELESS. STYRENE DEHYDRATION REACTOR OPERATOR AND CASE MANAGEMENT WILL BE ORDERED AT THIS TIME PER MD ORDERS FOR DISCHARGE PLANNING.
--- NOTE | 2020-03-07 05:50 | NUR ---
NOTE PATIENT IS RESTING IN BED WATCHING TV, STABLE, NO SIGNS OF RESPIRATORY DISTRESS. CALL LIGHT IS WITHIN REACH. BED IS LOCKED, ALARMED, AND AT THE LOWEST LEVEL.
[2020-03-07] MEDS: NORMAL SALINE 5 ML DISP.SYRIN IVF SCH ×2 (05:54→05:55)
--- NOTE | 2020-03-07 06:45 | NUR ---
CLOSING NOTE PATIENT'S HR WAS STABLE THROUGHOUT THE NIGHT. SHE SLEPT WELL. AT THIS TIME, PATIENT IS RESTING IN BED, STABLE, NO SIGNS OF RESPIRATORY DISTRESS. CALL LIGHT IS WITHIN REACH. BED IS LOCKED, ALARMED, AND AT THE LOWEST LEVEL. FALL, SAFETY, AND RESPIRATORY PRECAUTIONS HAVE BEEN TAKEN THROUGHOUT THE SHIFT. WILL CONTINUE TO MONITOR UNTIL SHIFT REPORT IS GIVEN AT BEDSIDE TO AM NURSE.
[2020-03-07 07:18] LABS: BASOPHILS # (AUTO) 0.1 K/uL (0.0-0.2); BASOPHILS % (AUTO) 0.9 % (0.0-2.0); EOSINOPHILS # (AUTO) 0.5 K/uL (0.0-0.4); EOSINOPHILS % (AUTO) 5.1 % (0.0-4.0); HEMATOCRIT 34.9 % (36-48); HEMOGLOBIN 11.7 g/dL (12.0-16.0); LYMPHOCYTES # (AUTO) 2.3 K/uL (1.0-5.5); LYMPHOCYTES % (AUTO) 25.9 % (20.5-51.5); MEAN CORPUSCULAR HEMOGLOBIN 27 pg (27-31); MEAN CORPUSCULAR HGB CONC 34 % (32-36); MEAN CORPUSCULAR VOLUME 80 fL (79.0-98.0); MONOCYTES # (AUTO) 0.4 K/uL (0.0-1.0); MONOCYTES % (AUTO) 4.6 % (1.7-9.3); NEUTROPHILS # (AUTO) 5.7 K/uL (1.8-7.7); NEUTROPHILS % (AUTO) 63.5 % (40.0-70.0); PLATELET COUNT (AUTO) 373 K/uL (130-430); RED BLOOD CELL COUNT(AUTO) 4.36 MIL/uL (4.2-6.2); WHITE BLOOD COUNT (AUTO) 8.9 K/uL (4.8-10.8)
[2020-03-07 08:00] VITALS: BP_SYST 112
[2020-03-07 08:00] LABS: ALBUMIN 3.2 g/dL (3.4-4.8); CALCIUM 8.9 mg/dL (8.4-11.0); CREATININE 0.53 mg/dL (0.55-1.30); PHOSPHORUS 4.1 mg/dL (2.7-4.5); POTASSIUM 4.1 mmol/L (3.5-5.1); THYROID STIMULATING HORMONE 2.71 uIu/mL (0.36-3.74); TOTAL BILIRUBIN 0.3 mg/dL (0.0-1.0)
[2020-03-07 08:17] LABS: C-REACTIVE PROTEIN QUANT 1.6 mg/dL (0-0.5)
[2020-03-07 08:32] LABS: ERYTHROCYTE SEDIMENTATION RATE 16 MM/HR (0-20)
[2020-03-07] MEDS: METOPROLOL TARTRATE 25 MG TABLET PO SCH (09:00)
[2020-03-07] MEDS: ATORVASTATIN 10 MG TABLET PO SCH (09:10)
[2020-03-07] MEDS: ASPIRIN 81 MG TAB.CHEW PO SCH (09:10)
[2020-03-07] MEDS: APIXABAN 2.5 MG TABLET PO SCH (09:10)
[2020-03-07] MEDS: amLODIPine BESYLATE 10 MG TABLET PO SCH (09:11)
--- NOTE | 2020-03-07 10:05 | NUR ---
Case mgt: Homeless packet printed from hospital intranet and taken to nurses station--s/w nurse Hood regarding dc order--CRISTELA TELLEZ
[2020-03-07 10:07] VITALS: BP_SYST 112
--- NOTE | 2020-03-07 11:30 | NUR ---
Patient refused to take her own home medications and dc instruction packet. Noted that when pt sat in the wheelchair for dc, pt's dc packet and home meds which were given to the pt earlier were on the bed, handed the items to patient but pt refused to take it, I took the pt items at the back of the wheel chair and told pt that she should take her prescriptions and dc instruction so she can show them to her pcp. offered again to pt the dc packet and her home meds. pt refused to take them.
--- NOTE | 2020-03-07 11:40 | NUR ---
D/C Patient Patient given medication reconciliation form and D/C instructions. Exit Care provided. Patient verbalized understanding. MD discussed with patient the results and treatment provided. Ambulatory with steady gait for discharge to home. Patient in stable condition, ID band removed. IV catheter removed, intact and dressing applied, no active bleeding. Rx of IVERMECTIN AND PREMETRHRIN given. Patient educated on pain management.
== END 2020-03-07 11:40 | disposition home or self-care (01) | DRG 206 ==
LOC: SED 00:04 → STU 04:10
PROVIDERS: ADMIT Preventive Medicine Preventive Medicine/Occupational Environmental Medicine; ATTEND Preventive Medicine Preventive Medicine/Occupational Environmental Medicine
DX: M94.0 Chondrocostal junction syndrome [Tietze] (principal); J44.9 Chronic obstructive pulmonary disease, unspecified; Z20.828 Contact with and (suspected) exposure to other viral communicable diseases; E78.5 Hyperlipidemia, unspecified; F79 Unspecified intellectual disabilities; D72.829 Elevated white blood cell count, unspecified; I11.9 Hypertensive heart disease without heart failure; R21 Rash and other nonspecific skin eruption; R73.9 Hyperglycemia, unspecified; D64.9 Anemia, unspecified; B86 Scabies; E78.00 Pure hypercholesterolemia, unspecified; Z88.1 Allergy status to other antibiotic agents; Z88.0 Allergy status to penicillin; Z88.8 Allergy status to other drugs, medicaments and biological substances; Z86.711 Personal history of pulmonary embolism; Z79.82 Long term (current) use of aspirin; Z79.899 Other long term (current) drug therapy
CPT/HCPCS: 36415; 70450-TC; 71045; 71275; 80053; 80061; 81003; 82550-TC; 83735-TC; 83880; 84100-TC; 84443-TC; 84484; 85025; 85379; 85610-TC; 85651-TC; 86140; 87040-TC; 87081; 93005; 93306; 99285; G0378; J2060; Q0163; Q9967

== ENCOUNTER 2020-04-04 16:41 | Emergency (ER) | payer OTHER, MEDICAID ==
[~2020-04-04] VITALS: Ht 162.6 cm; Wt 77.1 kg
[~2020-04-04 16:41] MED LIST changes: +ASPI-1155 PO; +IVER3TAB PO; +METO25TA6 PO; +PERM60CR18 TP
[2020-04-04 16:45] VITALS: BP_SYST 158
[2020-04-04 17:45] LABS: BASOPHILS # (AUTO) 0.1 K/uL (0.0-0.2); BASOPHILS % (AUTO) 0.7 % (0.0-2.0); EOSINOPHILS # (AUTO) 0.4 K/uL (0.0-0.4); EOSINOPHILS % (AUTO) 3.2 % (0.0-4.0); HEMATOCRIT 37.6 % (36-48); HEMOGLOBIN 12.5 g/dL (12.0-16.0); LYMPHOCYTES # (AUTO) 2.5 K/uL (1.0-5.5); MEAN CORPUSCULAR HEMOGLOBIN 27 pg (27-31); MEAN CORPUSCULAR HGB CONC 33 % (32-36); MEAN CORPUSCULAR VOLUME 80 fL (79.0-98.0); MONOCYTES # (AUTO) 0.6 K/uL (0.0-1.0); MONOCYTES % (AUTO) 5.3 % (1.7-9.3); NEUTROPHILS # (AUTO) 7.8 K/uL (1.8-7.7); NEUTROPHILS % (AUTO) 68.8 % (40.0-70.0); PLATELET COUNT (AUTO) 298 K/uL (130-430); RED BLOOD CELL COUNT(AUTO) 4.69 MIL/uL (4.2-6.2); RED CELL DISTRIBUTION WIDTH 14.2 % (9.0-15.0); WHITE BLOOD COUNT (AUTO) 11.3 K/uL (4.8-10.8)
[2020-04-04 18:17] LABS: PROTHROMBIN TIME 10.3 SECS (9.5-12.5)
[2020-04-04 18:20] LABS: CALCIUM 8.9 mg/dL (8.4-11.0); CREATININE 0.53 mg/dL (0.55-1.30); POTASSIUM 3.4 mmol/L (3.5-5.1)
[2020-04-04 18:37] LABS: ALBUMIN 3.8 g/dL (3.4-4.8); TOTAL BILIRUBIN 0.2 mg/dL (0.0-1.0)
[2020-04-04 19:55] VITALS: BP_SYST 158
== END 2020-04-04 19:55 | disposition home or self-care (01) ==
LOC: SED 16:41
DX: R07.89 Other chest pain (principal); I10 Essential (primary) hypertension; E78.5 Hyperlipidemia, unspecified; I26.99 Other pulmonary embolism without acute cor pulmonale; Z79.899 Other long term (current) drug therapy; Z79.82 Long term (current) use of aspirin; Z88.0 Allergy status to penicillin; Z88.1 Allergy status to other antibiotic agents
CPT/HCPCS: 36415; 71045; 80053; 84484; 85025; 85610-TC; 85730-TC; 93005; 99285

== ENCOUNTER 2021-01-29 21:55 | Inpatient (IN) | payer OTHER, MEDICAID, SELFPAY ==
[~2021-01-29] VITALS: Ht 162.6 cm; Wt 79.4 kg
[2021-01-29 21:55] VITALS: BP_SYST 151
[2021-01-29] MEDS ORDERED: ASPIRIN 325 MG TABLET PO ONE (23:45)
[2021-01-29 23:52] LABS: CALCIUM 8.9 mg/dL (8.4-11.0); CREATININE 0.67 mg/dL (0.55-1.30); POTASSIUM 3.7 mmol/L (3.5-5.1)
[2021-01-29 23:54] LABS: BASOPHILS # (AUTO) 0.1 K/uL (0.0-0.2); BASOPHILS % (AUTO) 0.7 % (0.0-2.0); EOSINOPHILS # (AUTO) 0.5 K/uL (0.0-0.4); EOSINOPHILS % (AUTO) 3.9 % (0.0-4.0); HEMATOCRIT 37.2 % (36-48); HEMOGLOBIN 12.7 g/dL (12.0-16.0); LYMPHOCYTES # (AUTO) 3.5 K/uL (1.0-5.5); LYMPHOCYTES % (AUTO) 27.6 % (20.5-51.5); MEAN CORPUSCULAR HEMOGLOBIN 27 pg (27-31); MEAN CORPUSCULAR HGB CONC 34 % (32-36); MEAN CORPUSCULAR VOLUME 80 fL (79.0-98.0); MONOCYTES # (AUTO) 0.8 K/uL (0.0-1.0); MONOCYTES % (AUTO) 6.6 % (1.7-9.3); NEUTROPHILS # (AUTO) 7.7 K/uL (1.8-7.7); NEUTROPHILS % (AUTO) 61.2 % (40.0-70.0); PLATELET COUNT (AUTO) 302 K/uL (130-430); RED BLOOD CELL COUNT(AUTO) 4.65 MIL/uL (4.2-6.2); RED CELL DISTRIBUTION WIDTH 14.1 % (9.0-15.0); WHITE BLOOD COUNT (AUTO) 12.5 K/uL (4.8-10.8)
[2021-01-29 23:58] LABS: ALBUMIN 3.5 g/dL (3.4-4.8); TOTAL BILIRUBIN 0.1 mg/dL (0.0-1.0)
[2021-01-30] MEDS ORDERED: ONDANSETRON HCL 4 MG/2 ML VIAL IVP ONE
[2021-01-30] MEDS ORDERED: NITROGLYCERIN 1 INCH (GM) OINT. TP ONE
[2021-01-30] MEDS ORDERED: MORPHINE 2 MG/ML INJ. SYRINGE IVP ONE
--- NOTE | 2021-01-30 00:10 | NUR ---
Received patient to ER via EMS ambulance w/ c/o left sided substernal chest pain radiating to left arm. Describes pain as sharp and rates pain 7.5/10. Introduced self to patient, positioned for comfort and safety w/ bed to low position sr up, continue to monitor. Patient resting quietly. No acute distress noted. Vital signs within normal range.
--- NOTE | 2021-01-30 00:15 | NUR ---
# 20 gauge angiocath placed to LAC. Use of asceptic technique. Opsite placed over site. Blood return noted. Flushed with 10 cc of normal saline. No evidence of infiltration noted. Patient tolerated well.
--- NOTE | 2021-01-30 00:20 | NUR ---
ER Dr. Grey at bedside examining patient.
--- NOTE | 2021-01-30 00:28 | NUR ---
Medicated per ASA, Morphine, Zofran and nitro paste per MD orders. Will cont to monitor and observe for any adverse reaction. Bed to low position sr up. continue to monitor.
--- NOTE | 2021-01-30 02:10 | NUR ---
Patient resting quietly. No acute distress noted. Vital signs within normal range.
--- NOTE | 2021-01-30 04:00 | NUR ---
Patient resting quietly. No acute distress noted. Vital signs within normal range.
--- NOTE | 2021-01-30 06:10 | NUR ---
Patient resting quietly. No acute distress noted. Vital signs within normal range.
--- NOTE | 2021-01-30 07:21 | NUR ---
REPOSITIONED FOR COMFORT, RESP UNLABORED, PAIN 2/10. SR ON MONITOR NO ECTOPY, COMMUNICATES CLEARLY IN FULL COMPLETE SENTENCES.
[2021-01-30 08:36] LABS: CHOLESTEROL 138 mg/dL (<200); HDL CHOLESTEROL 31 mg/dL (>55); LDL CHOLESTEROL 89 mg/dL (<100); TRIGLYCERIDES 208 mg/dL (30-150)
--- NOTE | 2021-01-30 09:01 | NUR ---
MEAL PROVIDED. CALM, ALERT, DENEIS CP/SOB
--- NOTE | 2021-01-30 09:43 | NUR ---
RESP UNLABORED, SKIN WARM AND DRY, CLEAR MENTATION AND SPEECH.
--- NOTE | 2021-01-30 10:13 | NUR ---
DR MENDOZA IN TO ASSESS
[2021-01-30] MEDS ORDERED: ALBUTEROL SULFATE 0.083% 2.5 MG/3 ML VIAL.NEB INH PRN (10:45)
--- NOTE | 2021-01-30 12:16 | NUR ---
CALM, ALERT, SB ON MONITOR. CLEAR MENTATION AND SPEECH, DENIES CP/SOB
[2021-01-30 13:52] VITALS: BP_SYST 127
[2021-01-30] MEDS ORDERED: QUET400T PO (13:59)
[2021-01-30] MEDS ORDERED: NOR10 PO (14:00)
[2021-01-30] MEDS ORDERED: METO25TA6 PO (14:00)
[2021-01-30] MEDS ORDERED: WELSR100 PO (14:00)
[2021-01-30 14:48] VITALS: BP_SYST 131
--- NOTE | 2021-01-30 14:49 | NUR ---
Patient given written and verbal discharge instructions and verbalizes understanding. ER MD discussed with patient the results and treatment provided. Patient in stable condition. ID arm band removed. IV catheter removed intact and dressing applied, no active bleeding. Rx of HOME MEDS given. Patient educated on pain management and to follow up with PMD. Pain Scale 0/10 Opportunity for questions provided and answered. Medication side effect fact sheet provided.
[2021-01-30] MEDS ORDERED: METOPROLOL TARTRATE 25 MG TABLET PO SCH (21:00)
[2021-01-31] MEDS ORDERED: amLODIPine BESYLATE 10 MG TABLET PO SCH (09:00)
[2021-01-31] MEDS ORDERED: ASPIRIN 81 MG TAB.CHEW PO SCH (09:00)
[2021-01-31] MEDS ORDERED: ATORVASTATIN 10 MG TABLET PO SCH (09:00)
== END 2021-01-30 14:49 | disposition home or self-care (01) | DRG 206 ==
LOC: SED 21:55 → STU 01-30 05:55
PROVIDERS: ADMIT Family Medicine; ATTEND Family Medicine
DX: M94.0 Chondrocostal junction syndrome [Tietze] (principal); F31.9 Bipolar disorder, unspecified; E78.5 Hyperlipidemia, unspecified; F41.9 Anxiety disorder, unspecified; K21.9 Gastro-esophageal reflux disease without esophagitis; J45.909 Unspecified asthma, uncomplicated; Z20.822 Contact with and (suspected) exposure to COVID-19; I10 Essential (primary) hypertension; Z86.711 Personal history of pulmonary embolism; Z98.891 History of uterine scar from previous surgery; Z88.0 Allergy status to penicillin; Z88.1 Allergy status to other antibiotic agents; Z88.8 Allergy status to other drugs, medicaments and biological substances; Z79.899 Other long term (current) drug therapy; Z79.82 Long term (current) use of aspirin; I25.2 Old myocardial infarction; Z90.49 Acquired absence of other specified parts of digestive tract; Z82.49 Family history of ischemic heart disease and other diseases of the circulatory system; Z82.0 Family history of epilepsy and other diseases of the nervous system; Z81.8 Family history of other mental and behavioral disorders
CPT/HCPCS: 36415; 71045; 80053; 80061; 83880; 84484; 85025; 93005; 96374; 99285; G0378; J2270; J2405

== ENCOUNTER 2021-02-11 21:48 | Inpatient (IN) | payer OTHER, MEDICAID, SELFPAY ==
[~2021-02-11] VITALS: Ht 162.6 cm; Wt 79.4 kg
[~2021-02-11 21:48] MED LIST changes: -ALBU8.5H8 INH; -APIX5TAB PO; -ASPI-1155 PO; -IVER3TAB PO; -LIP10 PO; -MECL-123 PO; -PERM60CR18 TP; +QUET400T PO; +WELSR100 PO
[2021-02-11 22:00] VITALS: BP_SYST 163
[2021-02-11] MEDS ORDERED: ASPIRIN 81 MG TAB.CHEW PO ONE (22:30)
[2021-02-11 22:49] LABS: BASOPHILS # (AUTO) 0.1 K/uL (0.0-0.2); BASOPHILS % (AUTO) 0.5 % (0.0-2.0); EOSINOPHILS # (AUTO) 0.4 K/uL (0.0-0.4); EOSINOPHILS % (AUTO) 2.6 % (0.0-4.0); HEMATOCRIT 38.1 % (36-48); HEMOGLOBIN 12.8 g/dL (12.0-16.0); LYMPHOCYTES # (AUTO) 2.9 K/uL (1.0-5.5); LYMPHOCYTES % (AUTO) 21.5 % (20.5-51.5); MEAN CORPUSCULAR HEMOGLOBIN 27 pg (27-31); MEAN CORPUSCULAR HGB CONC 33 % (32-36); MEAN CORPUSCULAR VOLUME 81 fL (79.0-98.0); MONOCYTES # (AUTO) 0.7 K/uL (0.0-1.0); MONOCYTES % (AUTO) 4.8 % (1.7-9.3); NEUTROPHILS # (AUTO) 9.6 K/uL (1.8-7.7); NEUTROPHILS % (AUTO) 70.6 % (40.0-70.0); PLATELET COUNT (AUTO) 354 K/uL (130-430); RED BLOOD CELL COUNT(AUTO) 4.71 MIL/uL (4.2-6.2); WHITE BLOOD COUNT (AUTO) 13.6 K/uL (4.8-10.8)
[2021-02-11 23:04] LABS: CALCIUM 9.4 mg/dL (8.4-11.0); CREATININE 0.75 mg/dL (0.55-1.30)
[2021-02-11 23:14] LABS: ALBUMIN 4.1 g/dL (3.4-4.8); TOTAL BILIRUBIN 0.4 mg/dL (0.0-1.0)
[2021-02-11] MEDS ORDERED: NITROGLYCERIN 0.4 MG TAB.SUBL SL ONE (23:15)
[2021-02-11] MEDS ORDERED: LIP20 PO (23:38)
[2021-02-11] MEDS ORDERED: ASPI-862 PO (23:38)
[2021-02-12] MEDS ORDERED: NITROGLYCERIN 0.4 MG TAB.SUBL SL PRN (02:15)
[2021-02-12 03:33] VITALS: BP_SYST 130
[2021-02-12 08:20] VITALS: BP_SYST 121
[2021-02-12] MEDS ORDERED: ASPIRIN 81 MG TAB.CHEW PO SCH (09:00)
[2021-02-12] MEDS ORDERED: LOPERAMIDE HCL 2 MG CAPSULE PO ONE (12:30)
[2021-02-12 13:00] VITALS: BP_SYST 136
[2021-02-12 18:12] VITALS: BP_SYST 135
[2021-02-12 19:30] VITALS: BP_SYST 158
[2021-02-12 20:00] VITALS: BP_SYST 135
[2021-02-12] MEDS ORDERED: QUEtiapine FUMARATE 100 MG TABLET PO SCH (21:00)
[2021-02-12] MEDS ORDERED: ENOXAPARIN SODIUM 40 MG/0.4 ML SYRINGE SUBCUT SCH (21:00)
[2021-02-13] VITALS: BP_SYST 131
[2021-02-13 06:30] LABS: BASOPHILS # (AUTO) 0.1 K/uL (0.0-0.2); BASOPHILS % (AUTO) 0.6 % (0.0-2.0); EOSINOPHILS # (AUTO) 0.4 K/uL (0.0-0.4); EOSINOPHILS % (AUTO) 4.4 % (0.0-4.0); HEMATOCRIT 35.6 % (36-48); HEMOGLOBIN 11.9 g/dL (12.0-16.0); LYMPHOCYTES # (AUTO) 3.2 K/uL (1.0-5.5); LYMPHOCYTES % (AUTO) 33.3 % (20.5-51.5); MEAN CORPUSCULAR HEMOGLOBIN 27 pg (27-31); MEAN CORPUSCULAR HGB CONC 33 % (32-36); MEAN CORPUSCULAR VOLUME 81 fL (79.0-98.0); MONOCYTES # (AUTO) 0.6 K/uL (0.0-1.0); MONOCYTES % (AUTO) 6.1 % (1.7-9.3); NEUTROPHILS # (AUTO) 5.3 K/uL (1.8-7.7); NEUTROPHILS % (AUTO) 55.6 % (40.0-70.0); PLATELET COUNT (AUTO) 289 K/uL (130-430); RED CELL DISTRIBUTION WIDTH 13.7 % (9.0-15.0); WHITE BLOOD COUNT (AUTO) 9.5 K/uL (4.8-10.8)
[2021-02-13 07:58] VITALS: BP_SYST 126
[2021-02-13] MEDS ORDERED: ASPIRIN 325 MG TABLET (ECOTRIN) PO SCH (09:00)
[2021-02-13] MEDS ORDERED: ATORVASTATIN 20 MG TABLET PO SCH (09:00)
[2021-02-13] MEDS ORDERED: amLODIPine BESYLATE 5 MG TABLET PO SCH (09:00)
[2021-02-13] MEDS ORDERED: buPROPion HCL 100 MG TABLET.SA PO SCH (09:00)
[2021-02-13 09:11] LABS: CALCIUM 8.8 mg/dL (8.4-11.0); CREATININE 0.64 mg/dL (0.55-1.30); POTASSIUM 3.3 mmol/L (3.5-5.1)
[2021-02-13 12:00] VITALS: BP_SYST 120
[2021-02-13] MEDS: POTASSIUM CHLORIDE 20 MEQ/PKT PACKET PO ONE ×2 (14:04→14:14)
[2021-02-13] MEDS ORDERED: POTASSIUM CHLORIDE 20 MEQ TAB.PRT.SR PO ONE (14:15)
== END 2021-02-13 14:40 | disposition home or self-care (01) | DRG 206 ==
LOC: SED 21:48 → STU 02-12 02:11
PROVIDERS: ADMIT Family Medicine; ATTEND Family Medicine
DX: M94.0 Chondrocostal junction syndrome [Tietze] (principal); E87.6 Hypokalemia; I10 Essential (primary) hypertension; E78.5 Hyperlipidemia, unspecified; F31.9 Bipolar disorder, unspecified; Z20.822 Contact with and (suspected) exposure to COVID-19; J45.909 Unspecified asthma, uncomplicated; F41.9 Anxiety disorder, unspecified; Z86.711 Personal history of pulmonary embolism; Z88.1 Allergy status to other antibiotic agents; Z88.8 Allergy status to other drugs, medicaments and biological substances; Z79.82 Long term (current) use of aspirin; Z79.899 Other long term (current) drug therapy; Z98.891 History of uterine scar from previous surgery
CPT/HCPCS: 36415; 71045; 80048; 80053; 82550; 83880; 84484; 85025; 85379; 93005; 93970; 99285; G0378; J1650

== ENCOUNTER 2021-06-21 16:09 | Emergency (ER) | payer OTHER, MEDICAID, SELFPAY ==
[~2021-06-21] VITALS: Ht 160 cm; Wt 81.6 kg
[~2021-06-21 16:09] MED LIST changes: +ASPI-862 PO; +LIP20 PO; -METO25TA6 PO
[2021-06-21 16:38] VITALS: BP_SYST 161
--- NOTE | 2021-06-21 16:38 | NUR ---
Patient triaged and placed in waiting room. VSS and patient appears in no acute distress at this time. Accompanied by self, awaiting available bed, and MD notified of need for MSE.
--- NOTE | 2021-06-21 16:40 | NUR ---
Patient ambulatory aox 4 from home complaining of right leg pain x 2 days. hx of sciatica. pain 09/05. denies any trauma. no other complaints/injuries per patient or as noted.
--- NOTE | 2021-06-21 16:50 | NUR ---
ER Dr. Broderick at bedside examining patient.
[2021-06-21] MEDS ORDERED: HYDR-3917 PO (16:51)
[2021-06-21] MEDS ORDERED: IBUP-1969 PO (16:51)
[2021-06-21 17:01] VITALS: BP_SYST 154
--- NOTE | 2021-06-21 17:01 | NUR ---
Patient given written and verbal discharge instructions and verbalizes understanding. ER MD discussed with patient the results and treatment provided. Patient in stable condition. ID arm band removed. Rx of norco and ibuprofen given. Patient educated on pain management and to follow up with PMD. Pain Scale 0/10 Opportunity for questions provided and answered. Medication side effect fact sheet provided.
== END 2021-06-21 17:01 | disposition home or self-care (01) ==
LOC: SED 16:09
DX: M54.32 Sciatica, left side (principal); I10 Essential (primary) hypertension; J45.909 Unspecified asthma, uncomplicated; Z88.0 Allergy status to penicillin; Z88.1 Allergy status to other antibiotic agents; Z79.899 Other long term (current) drug therapy
CPT/HCPCS: 99283

== ENCOUNTER 2021-08-08 11:36 | Emergency (ER) | payer OTHER, MEDICAID ==
[~2021-08-08] VITALS: Ht 162.6 cm; Wt 81.6 kg
[2021-08-08 11:36] VITALS: BP_SYST 141
[~2021-08-08 11:36] MED LIST changes: +HYDR-3917 PO; +IBUP-1969 PO
--- NOTE | 2021-08-08 11:36 | NUR ---
BROUGHT BACK TO BED #8 AND TRIAGED. REPORT GIVEN TO MODESTO
--- NOTE | 2021-08-08 11:51 | NUR ---
Pt. bib friend with pain down right but and leg 6/10 for 2 days, pt. states has sciatica and has tried motrin to help but not effective
--- NOTE | 2021-08-08 11:59 | NUR ---
ER at bedside examining patient.
[2021-08-08] MEDS ORDERED: HYDR-3917 PO (12:11)
--- NOTE | 2021-08-08 12:21 | NUR ---
Patient given written and verbal discharge instructions and verbalizes understanding. ER discussed with patient the results and treatment provided. Patient in stable condition. ID arm band removed. Rx of [place] given. Patient educated on pain management and to follow up with PMD. Pain Scale 6. Opportunity for questions provided and answered. Medication side effect fact sheet provided.
[2021-08-08 12:23] VITALS: BP_SYST 143
== END 2021-08-08 12:21 | disposition home or self-care (01) ==
LOC: SED 11:36
DX: M54.30 Sciatica, unspecified side (principal); I10 Essential (primary) hypertension; J44.9 Chronic obstructive pulmonary disease, unspecified; E78.5 Hyperlipidemia, unspecified; I25.2 Old myocardial infarction; K21.9 Gastro-esophageal reflux disease without esophagitis; Z79.899 Other long term (current) drug therapy; Z88.8 Allergy status to other drugs, medicaments and biological substances; Z88.0 Allergy status to penicillin; Z95.0 Presence of cardiac pacemaker
CPT/HCPCS: 99283

== ENCOUNTER 2021-09-05 16:53 | Inpatient (IN) | payer OTHER, MEDICAID ==
[~2021-09-05] VITALS: Ht 162.6 cm; Wt 81.6 kg
[2021-09-05 16:55] VITALS: BP_SYST 194
[2021-09-05 18:33] LABS: BASOPHILS # (AUTO) 0.1 K/uL (0.0-0.2); BASOPHILS % (AUTO) 0.6 % (0.0-2.0); EOSINOPHILS # (AUTO) 0.3 K/uL (0.0-0.4); EOSINOPHILS % (AUTO) 2.3 % (0.0-4.0); HEMATOCRIT 38.4 % (36-48); HEMOGLOBIN 13.2 g/dL (12.0-16.0); LYMPHOCYTES # (AUTO) 3.1 K/uL (1.0-5.5); LYMPHOCYTES % (AUTO) 25.2 % (20.5-51.5); MEAN CORPUSCULAR HEMOGLOBIN 27 pg (27-31); MEAN CORPUSCULAR HGB CONC 35 % (32-36); MEAN CORPUSCULAR VOLUME 79 fL (79.0-98.0); MONOCYTES # (AUTO) 0.8 K/uL (0.0-1.0); MONOCYTES % (AUTO) 6.1 % (1.7-9.3); NEUTROPHILS # (AUTO) 8.1 K/uL (1.8-7.7); NEUTROPHILS % (AUTO) 65.8 % (40.0-70.0); PLATELET COUNT (AUTO) 333 K/uL (130-430); RED BLOOD CELL COUNT(AUTO) 4.86 MIL/uL (4.2-6.2); RED CELL DISTRIBUTION WIDTH 13.1 % (9.0-15.0); WHITE BLOOD COUNT (AUTO) 12.3 K/uL (4.8-10.8)
[2021-09-05] MEDS ORDERED: ASPIRIN 325 MG TABLET (ECOTRIN) PO ONE (19:15)
[2021-09-05] MEDS ORDERED: NITROGLYCERIN 0.4 MG TAB.SUBL SL ONE (19:15)
[2021-09-05 19:22] LABS: ANION GAP 8 (5-15); CHLORIDE 106 mmol/L (98-107); GLUCOSE 124 mg/dL (70-99); POTASSIUM 3.5 mmol/L (3.5-5.1); SODIUM SERUM 141 mmol/L (136-145); UREA NITROGEN, BLOOD 14 mg/dL (8-21)
[2021-09-05 19:23] LABS: ALANINE AMINOTRANSFERASE 32 U/L (12-78); ALBUMIN 3.8 g/dL (3.4-4.8); ASPARTATE AMINOTRANSFERASE 14 U/L (10-37); CREATININE 0.82 mg/dL (0.55-1.30); GFR AFRICAN AMERICAN 92 mL/min (>90); TOTAL BILIRUBIN 0.3 mg/dL (0.0-1.0)
[2021-09-05] MEDS: hydrALAZINE HCL 20 MG/ML VIAL IVP PRN (20:25)
[2021-09-05] MEDS: NORMAL SALINE 5 ML DISP.SYRIN IVF SCH (20:26)
[2021-09-05] MEDS ORDERED: METO25TA3 PO (22:25)
[2021-09-05 23:00] VITALS: BP_SYST 158; BP_SYST 171
[2021-09-06] MEDS: hydrALAZINE HCL 20 MG/ML VIAL IVP PRN (01:09)
[2021-09-06] MEDS: ACETAMINOPHEN 500 MG TABLET PO PRN ×2 (01:29→21:01)
[2021-09-06 01:50] VITALS: BP_SYST 158
[2021-09-06 04:30] VITALS: BP_SYST 139
[2021-09-06] MEDS ORDERED: MORPHINE 2 MG/ML INJ. SYRINGE IVP PRN (05:15)
[2021-09-06] MEDS ORDERED: NALOXONE HCL 0.4 MG/ML AMP (NARCAN) IVP PRN (05:15)
[2021-09-06] MEDS: NORMAL SALINE 5 ML DISP.SYRIN IVF SCH ×3 (06:23→21:01)
[2021-09-06 08:44] LABS: BASOPHILS # (AUTO) 0.1 K/uL (0.0-0.2); BASOPHILS % (AUTO) 0.4 % (0.0-2.0); EOSINOPHILS # (AUTO) 0.3 K/uL (0.0-0.4); EOSINOPHILS % (AUTO) 1.6 % (0.0-4.0); HEMATOCRIT 41.6 % (36-48); HEMOGLOBIN 13.9 g/dL (12.0-16.0); LYMPHOCYTES # (AUTO) 3.4 K/uL (1.0-5.5); LYMPHOCYTES % (AUTO) 21.2 % (20.5-51.5); MEAN CORPUSCULAR HEMOGLOBIN 27 pg (27-31); MEAN CORPUSCULAR HGB CONC 33 % (32-36); MEAN CORPUSCULAR VOLUME 80 fL (79.0-98.0); MONOCYTES # (AUTO) 0.8 K/uL (0.0-1.0); MONOCYTES % (AUTO) 5.1 % (1.7-9.3); NEUTROPHILS # (AUTO) 11.5 K/uL (1.8-7.7); NEUTROPHILS % (AUTO) 71.7 % (40.0-70.0); PLATELET COUNT (AUTO) 386 K/uL (130-430); RED BLOOD CELL COUNT(AUTO) 5.22 MIL/uL (4.2-6.2); RED CELL DISTRIBUTION WIDTH 13.6 % (9.0-15.0)
[2021-09-06] MEDS ORDERED: METOPROLOL SUCCINATE 25 MG TAB.SR.24H (TOPROL XL) PO SCH (09:00)
[2021-09-06 09:09] LABS: ALBUMIN 3.8 g/dL (3.4-4.8); CALCIUM 9.1 mg/dL (8.4-11.0); CREATININE 0.68 mg/dL (0.55-1.30); POTASSIUM 3.4 mmol/L (3.5-5.1); TOTAL BILIRUBIN 0.5 mg/dL (0.0-1.0)
[2021-09-06] MEDS: ASPIRIN 325 MG TABLET (ECOTRIN) PO SCH (09:17)
[2021-09-06] MEDS: amLODIPine BESYLATE 10 MG TABLET PO SCH (09:18)
[2021-09-06] MEDS: METOPROLOL SUCCINATE 50 MG TAB.SR.24H (TOPROL XL) PO SCH (09:19)
[2021-09-06] MEDS: ATORVASTATIN 20 MG TABLET PO SCH (09:19)
[2021-09-06] MEDS: buPROPion HCL 100 MG TABLET.SA PO SCH (09:19)
[2021-09-06 11:33] VITALS: BP_SYST 134
[2021-09-06] MEDS ORDERED: CALCIUM CARBONATE 500 MG/ TAB.CHEW PO PRN (15:45)
[2021-09-06 16:46] VITALS: BP_SYST 131
[2021-09-06 20:00] VITALS: BP_SYST 149
[2021-09-06] MEDS ORDERED: QUEtiapine FUMARATE 100 MG TABLET PO SCH (21:00)
[2021-09-07 00:20] VITALS: BP_SYST 105
[2021-09-07] MEDS: NORMAL SALINE 5 ML DISP.SYRIN IVF SCH ×2 (06:51→14:20)
[2021-09-07 07:30] VITALS: BP_SYST 107
[2021-09-07] MEDS: buPROPion HCL 100 MG TABLET.SA PO SCH (08:36)
[2021-09-07] MEDS: ATORVASTATIN 20 MG TABLET PO SCH (08:36)
[2021-09-07] MEDS: ASPIRIN 325 MG TABLET (ECOTRIN) PO SCH (08:36)
[2021-09-07 12:00] VITALS: BP_SYST 119
[2021-09-07] MEDS: METOPROLOL SUCCINATE 50 MG TAB.SR.24H (TOPROL XL) PO SCH (12:51)
[2021-09-07] MEDS: amLODIPine BESYLATE 10 MG TABLET PO SCH (12:51)
[2021-09-07] MEDS ORDERED: NOR10 PO (16:53)
[2021-09-07 16:56] VITALS: BP_SYST 131
== END 2021-09-07 17:50 | disposition home or self-care (01) | DRG 305 ==
LOC: SED 16:53 → STU 19:10
PROVIDERS: ADMIT Internal Medicine; ATTEND Internal Medicine
DX: I16.1 Hypertensive emergency (principal); R65.10 Systemic inflammatory response syndrome (SIRS) of non-infectious origin without acute organ dysfunction; I24.8 Other forms of acute ischemic heart disease; F31.9 Bipolar disorder, unspecified; Z20.822 Contact with and (suspected) exposure to COVID-19; J45.909 Unspecified asthma, uncomplicated; E78.5 Hyperlipidemia, unspecified; I10 Essential (primary) hypertension; Z79.82 Long term (current) use of aspirin; Z79.899 Other long term (current) drug therapy; Z86.711 Personal history of pulmonary embolism; Z88.1 Allergy status to other antibiotic agents; Z88.0 Allergy status to penicillin; Z88.8 Allergy status to other drugs, medicaments and biological substances
CPT/HCPCS: 36415; 71045; 80053; 83880; 84484; 85025; 93005; 99285; G0378; J0360

== ENCOUNTER 2021-09-19 21:07 | Emergency (ER) | payer OTHER, MEDICAID ==
[~2021-09-19] VITALS: Ht 162.6 cm; Wt 81.6 kg
[~2021-09-19 21:07] MED LIST changes: -HYDR-3917 PO; -IBUP-1969 PO; +METO25TA3 PO
[2021-09-19 21:55] VITALS: BP_SYST 164
--- NOTE | 2021-09-19 22:06 | NUR ---
60 YR OLD FEMALE PT WITH COMPLAINT OF RIGHT FOOT PAIN 12/05 AFTER ACCIDENTALY KICKING A BOX ONE DAY AGO. PT REPORTS RECENT HOSPITALIZATION FOR ELEVATED BLOOD PRESSURE FOR TWO NIGHTS ABOUT 2 WEEKS AGO. PT TOOK NAPROXYN ABOUT 6 HOURS AGO. PT WENT TO URGENT CARE AND WAS TOLD TO COME TO ER FOR FURTHER EVALUATION.
[2021-09-19 22:18] VITALS: BP_SYST 164
--- NOTE | 2021-09-19 22:54 | NUR ---
MD ROMANO AWARE OF BLOOD PRESSURE OF 164/102.
[2021-09-19] MEDS ORDERED: KETOROLAC TROMETHAMINE 60 MG/2 ML VIAL IM ONE (23:00)
[2021-09-19] MEDS ORDERED: HYDROcodone/ACETAMIN 10-325 MG TAB PO ONE (23:30)
--- NOTE | 2021-09-19 23:59 | NUR ---
PT DISCHARGED WITH [facility]OMEC[facility] INSTRUCTIONS. PT PROVIDED WITH CRUTCHES, FOOT IMMOBILILIZER AND INSTRUCTIONS ON USAGE WITH [employer], WITH RETURN DEMONSTRATION. PT ENCOUARGED TO FOLLOW UP WITH PRIMARY DOCTOR AND PROVIDED WITH A COPY OF XRAY RESULTS VIA DISK FOR PRIMARY MD. PT GIVEN PRESCRIPTION FOR PAIN MEDICATION, AND ENCOUARGED TO TAKE ORDERED. ALL QUESTIONS ANSWERED. PT TAKEN OUT OF ED VIA WHEELCHAIR TO LYFT CAR AWAITING AT [facility] IN STABLE CONDITION
[2021-09-20] MEDS ORDERED: NAPR-690 PO (00:21)
== END 2021-09-20 | disposition home or self-care (01) ==
LOC: SED 21:07
DX: S92.534A Nondisplaced fracture of distal phalanx of right lesser toe(s), initial encounter for closed fracture (principal); I10 Essential (primary) hypertension; J45.909 Unspecified asthma, uncomplicated; Z88.0 Allergy status to penicillin; Z79.899 Other long term (current) drug therapy; Z88.1 Allergy status to other antibiotic agents; W22.8XXA Striking against or struck by other objects, initial encounter; Y93.89 Activity, other specified; Y92.89 Other specified places as the place of occurrence of the external cause; Y99.8 Other external cause status
CPT/HCPCS: 99283; J1885

== ENCOUNTER 2021-10-04 15:32 | Emergency (ER) | payer OTHER, MEDICAID ==
[~2021-10-04] VITALS: Ht 162.6 cm; Wt 79.4 kg
[~2021-10-04 15:32] MED LIST changes: +NAPR-690 PO
[2021-10-04 16:56] VITALS: BP_SYST 131
--- NOTE | 2021-10-04 16:56 | NUR ---
Pt triaged in waiting area. Awaiting X ray.
--- NOTE | 2021-10-04 17:00 | NUR ---
Pt awake, alert and oriented x 3. Here from home reporting R foot pain 11/05. Stated was here 2 weeks ago after sustained fall and was told 4th and 5th toes were broken. Returned here due to Naproxen not working. Ambulating with crutches. Awaiting imaging.
--- NOTE | 2021-10-04 17:21 | NUR ---
Per Dr Doll, this selling underwriter placed imaging order for patient.
--- NOTE | 2021-10-04 17:33 | NUR ---
To radiology via wheelchair.
--- NOTE | 2021-10-04 18:28 | NUR ---
Dr Doll to triage area to examine patient
--- NOTE | 2021-10-04 19:00 | NUR ---
Patient given written and verbal discharge instructions and verbalizes understanding. ER MD discussed with patient the results and treatment provided. Patient in stable condition. ID arm band removed. Rx of Bactrim and [place] given. Patient educated on pain management and to follow up with PMD. Pain only with movement reported. Opportunity for questions provided and answered. Medication side effect fact sheet provided.
== END 2021-10-04 19:03 | disposition home or self-care (01) ==
LOC: SED 15:32
DX: M79.671 Pain in right foot (principal); I10 Essential (primary) hypertension; J45.909 Unspecified asthma, uncomplicated; Z88.0 Allergy status to penicillin; Z88.1 Allergy status to other antibiotic agents; Z88.8 Allergy status to other drugs, medicaments and biological substances
CPT/HCPCS: 99283

== ENCOUNTER 2021-10-20 17:15 | Emergency (ER) | payer OTHER, MEDICAID ==
[~2021-10-20] VITALS: Ht 162.6 cm; Wt 80.7 kg
[2021-10-20 17:24] VITALS: BP_SYST 166
[2021-10-20] MEDS ORDERED: HYDR-3917 PO ×2 (17:35→19:11)
== END 2021-10-21 17:50 | disposition home or self-care (01) ==
LOC: SED 17:15
DX: M79.674 Pain in right toe(s) (principal); I10 Essential (primary) hypertension; J45.909 Unspecified asthma, uncomplicated; Z88.0 Allergy status to penicillin; Z88.1 Allergy status to other antibiotic agents; Z88.8 Allergy status to other drugs, medicaments and biological substances; Z79.899 Other long term (current) drug therapy
CPT/HCPCS: 99283

== ENCOUNTER → 2021-11-09 | Emergency (ER) | payer OTHER, MEDICAID ==
[~2021-11-09] VITALS: Ht 162.6 cm; Wt 79.4 kg
[~2021-11-09] MED LIST changes: +HYDR-3917 PO; +HYDROcodone/ACETAMIN 5-325 MG TAB (NORCO/ VICODIN) PO ONE
[2021-11-09 14:06] VITALS: BP_SYST 153
--- NOTE | 2021-11-09 14:15 | NUR ---
Pt triaged and placed in waiting room pending bed availability.
--- NOTE | 2021-11-09 14:17 | NUR ---
Patient to ER bed 7 for evaluation. Side rails up. Report given to Sabina MENDEZ.
--- NOTE | 2021-11-09 14:35 | NUR ---
pt presents from ER bib self c/o 03/07 pain to lateral right foot to little toe. Pt cannot bear weight at this time. Pt states fracture from toe injury occured in 09/17. AAOx4 skin intact. bed rails up bed down. PMHx HTN High cholesterol
--- NOTE | 2021-11-09 14:39 | NUR ---
ER at bedside examining patient.
--- NOTE | 2021-11-10 15:00 | NUR ---
Patient given written and verbal discharge instructions and verbalizes understanding. ER MD discussed with patient the results and treatment provided. Patient in stable condition. ID arm band removed. Patient educated on pain management and to follow up with PMD. Pain Scale greater than 7. Opportunity for questions provided and answered. Medication side effect fact sheet provided.
[2021-11-12 10:11] VITALS: BP_SYST 153
== END | disposition home or self-care (01) ==
LOC: SED 13:48
DX: M79.674 Pain in right toe(s) (principal); G89.29 Other chronic pain; R00.2 Palpitations; E78.5 Hyperlipidemia, unspecified; I10 Essential (primary) hypertension; J45.909 Unspecified asthma, uncomplicated; Z88.0 Allergy status to penicillin; Z88.1 Allergy status to other antibiotic agents; Z88.8 Allergy status to other drugs, medicaments and biological substances; Z79.899 Other long term (current) drug therapy
CPT/HCPCS: 93005; 99283

== ENCOUNTER 2021-12-29 19:02 | Emergency (ER) | payer OTHER, MEDICAID ==
[~2021-12-29] VITALS: Ht 160 cm; Wt 79.4 kg
[~2021-12-29 19:02] MED LIST changes: -HYDROcodone/ACETAMIN 5-325 MG TAB (NORCO/ VICODIN) PO ONE
[2021-12-29 19:42] VITALS: BP_SYST 172
[2021-12-29] MEDS ORDERED: IBUP-1969 PO (19:56)
[2021-12-29] MEDS ORDERED: HYDR-3917 PO (19:56)
[2021-12-29] MEDS ORDERED: KETOROLAC TROMETHAMINE 60 MG/2 ML VIAL IM ONE (20:00)
[2021-12-29] MEDS ORDERED: HYDROcodone/ACETAMIN 10-325 MG TAB PO ONE (20:00)
[2021-12-29 21:33] VITALS: BP_SYST 172
== END 2021-12-29 21:33 | disposition home or self-care (01) ==
LOC: SED 19:02
DX: M54.30 Sciatica, unspecified side (principal); J45.909 Unspecified asthma, uncomplicated; I10 Essential (primary) hypertension; E78.5 Hyperlipidemia, unspecified; Z88.0 Allergy status to penicillin; Z88.1 Allergy status to other antibiotic agents; Z88.8 Allergy status to other drugs, medicaments and biological substances; Z79.899 Other long term (current) drug therapy
CPT/HCPCS: 99283

== ENCOUNTER 2022-01-22 13:23 | Emergency (ER) | payer OTHER, MEDICAID ==
[~2022-01-22] VITALS: Ht 162.6 cm; Wt 78.0 kg
[~2022-01-22 13:23] MED LIST changes: +IBUP-1969 PO
[2022-01-22 13:38] VITALS: BP_SYST 149
[2022-01-22] MEDS ORDERED: HYDROcodone/ACETAMIN 5-325 MG TAB (NORCO/ VICODIN) PO ONE (16:00)
[2022-01-22] MEDS ORDERED: HYDR-3917 PO (16:03)
[2022-01-22 18:28] VITALS: BP_SYST 128
== END 2022-01-22 16:00 | disposition home or self-care (01) ==
LOC: SED 13:23
DX: S52.601A Unspecified fracture of lower end of right ulna, initial encounter for closed fracture (principal); M25.521 Pain in right elbow; J45.909 Unspecified asthma, uncomplicated; E78.5 Hyperlipidemia, unspecified; I10 Essential (primary) hypertension; Z88.0 Allergy status to penicillin; Z88.1 Allergy status to other antibiotic agents; Z88.8 Allergy status to other drugs, medicaments and biological substances; Z79.899 Other long term (current) drug therapy; W01.0XXA Fall on same level from slipping, tripping and stumbling without subsequent striking against object, initial encounter; Y93.89 Activity, other specified; Y92.89 Other specified places as the place of occurrence of the external cause; Y99.8 Other external cause status
CPT/HCPCS: 73090; 99284

== ENCOUNTER 2022-07-28 17:27 | Emergency (ER) | payer OTHER, MEDICAID ==
[~2022-07-28] VITALS: Ht 162.6 cm; Wt 81.6 kg
[2022-07-28 17:27] VITALS: BP_SYST 159
--- NOTE | 2022-07-28 17:27 | NUR ---
Patient triaged and placed in waiting room. VSS and patient appears in no acute distress at this time. Accompanied by SELF, awaiting available bed, and MD notified of need for MSE.
--- NOTE | 2022-07-28 17:40 | NUR ---
PT STATES LEFT SIDED SCIATICA PAIN FOR LAST 2 DAYS, PT ABLE TO AMBULATE WITHOUT ISSUES. STATES SHE ALWAYS HAS ISSUES WITH HER SCIATICA
--- NOTE | 2022-07-28 18:00 | NUR ---
AWAITING ER BED AVAILABILITY
--- NOTE | 2022-07-28 19:01 | NUR ---
DR ARMSTRONG OUT TO TRIAGE ROOM TO EVALUATE PT.
[2022-07-28] MEDS ORDERED: DICL75TA5 PO (19:15)
[2022-07-28] MEDS ORDERED: BACL20TA PO (19:15)
[2022-07-28 19:47] VITALS: BP_SYST 131
--- NOTE | 2022-07-28 19:48 | NUR ---
Patient given written and verbal discharge instructions and verbalizes understanding. ER MD discussed with patient the results and treatment provided. Patient in stable condition. ID arm band removed. IV catheter removed intact and dressing applied, no active bleeding. Rx of VOLTREN,BACLOFEN given. Patient educated on pain management and to follow up with PMD. Pain Scale 4. Opportunity for questions provided and answered. Medication side effect fact sheet provided.
== END 2022-07-28 19:47 | disposition home or self-care (01) ==
LOC: SED 17:27
DX: M54.32 Sciatica, left side (principal); J45.909 Unspecified asthma, uncomplicated; I10 Essential (primary) hypertension; Z88.0 Allergy status to penicillin; Z88.1 Allergy status to other antibiotic agents; Z88.8 Allergy status to other drugs, medicaments and biological substances; Z79.899 Other long term (current) drug therapy
CPT/HCPCS: 99283

== ENCOUNTER 2022-07-30 12:00 | Emergency (ER) | payer OTHER, MEDICAID ==
[~2022-07-30] VITALS: Ht 162.6 cm; Wt 81.6 kg
[~2022-07-30 12:00] MED LIST changes: +BACL20TA PO; +DICL75TA5 PO
[2022-07-30] MEDS ORDERED: HYDROcodone/ACETAMIN 5-325 MG TAB (NORCO/ VICODIN) PO ONE (12:15)
[2022-07-30] MEDS ORDERED: KETOROLAC TROMETHAMINE 60 MG/2 ML VIAL IM ONE (12:15)
[2022-07-30 12:41] VITALS: BP_SYST 154
== END 2022-07-30 12:40 | disposition home or self-care (01) ==
LOC: SED 12:00
DX: M54.31 Sciatica, right side (principal); M54.50 Low back pain, unspecified; J45.909 Unspecified asthma, uncomplicated; I10 Essential (primary) hypertension; Z88.0 Allergy status to penicillin; Z88.1 Allergy status to other antibiotic agents; Z88.8 Allergy status to other drugs, medicaments and biological substances; Z79.899 Other long term (current) drug therapy
CPT/HCPCS: 99283

== ENCOUNTER 2022-08-08 13:14 | Emergency (ER) | payer OTHER, MEDICAID ==
[~2022-08-08] VITALS: Ht 162.6 cm; Wt 79.4 kg
[2022-08-08 13:47] VITALS: BP_SYST 164
[2022-08-08] MEDS ORDERED: NACL 0.9% 1,000 ML IV ONE (14:45)
[2022-08-08] MEDS ORDERED: KETOROLAC TROMETHAMINE 30 MG VIAL IVP ONE (14:45)
[2022-08-08] MEDS ORDERED: MORPHINE 4 MG INJ. 4 MG/ML VIAL IM ONE (14:46)
[2022-08-08 15:11] LABS: BILIRUBIN,URINE NEGATIVE (NEGATIVE); BLOOD, URINE NEGATIVE (NEGATIVE); CLARITY/URINE CLEAR (CLEAR); COLOR,URINE YELLOW (YELLOW); GLUCOSE,URINE NEGATIVE (NEGATIVE); KETONES,URINE NEGATIVE (NEGATIVE); LEUKOCYTE ESTERASE ,URINE NEGATIVE (NEGATIVE); NITRITE, URINE NEGATIVE (NEGATIVE); PROTEIN URINE NEGATIVE (NEGATIVE); UROBILINOGEN,URINE 0.2 (0.2-1.0)
[2022-08-08 15:41] LABS: BASOPHILS # (AUTO) 0.1 K/uL (0.0-0.2); BASOPHILS % (AUTO) 0.6 % (0.0-2.0); EOSINOPHILS # (AUTO) 0.3 K/uL (0.0-0.4); EOSINOPHILS % (AUTO) 2.9 % (0.0-4.0); HEMATOCRIT 39.3 % (36-48); HEMOGLOBIN 13.3 g/dL (12.0-16.0); LYMPHOCYTES # (AUTO) 2.6 K/uL (1.0-5.5); MEAN CORPUSCULAR HEMOGLOBIN 27 pg (27-31); MEAN CORPUSCULAR HGB CONC 34 % (32-36); MEAN CORPUSCULAR VOLUME 80 fL (79.0-98.0); MONOCYTES # (AUTO) 0.6 K/uL (0.0-1.0); MONOCYTES % (AUTO) 5.4 % (1.7-9.3); NEUTROPHILS # (AUTO) 7.7 K/uL (1.8-7.7); NEUTROPHILS % (AUTO) 68.1 % (40.0-70.0); PLATELET COUNT (AUTO) 332 K/uL (130-430); RED BLOOD CELL COUNT(AUTO) 4.94 MIL/uL (4.2-6.2); RED CELL DISTRIBUTION WIDTH 13.3 % (9.0-15.0); WHITE BLOOD COUNT (AUTO) 11.3 K/uL (4.8-10.8)
[2022-08-08 15:54] LABS: ALBUMIN 3.7 g/dL (3.4-4.8); CALCIUM 9.4 mg/dL (8.4-11.0); CREATININE 0.73 mg/dL (0.55-1.30); TOTAL BILIRUBIN 0.1 mg/dL (0.0-1.0)
--- NOTE | 2022-08-08 16:00 | NUR ---
ER at bedside examining patient.
--- NOTE | 2022-08-08 16:00 | NUR ---
Pt C/O upper abdominal pain AOX4 VSS Able to make needs known Will continu to monitor
[2022-08-08] MEDS ORDERED: MOM PO (16:42)
[2022-08-08 17:13] VITALS: BP_SYST 126
--- NOTE | 2022-08-08 17:14 | NUR ---
Patient given written and verbal discharge instructions and verbalizes understanding. ER MD discussed with patient the results and treatment provided. Patient in stable condition. ID arm band removed. IV catheter removed intact and dressing applied, no active bleeding. Rx of Magnesium hydroxide given. Patient educated on pain management and to follow up with PMD. Opportunity for questions provided and answered. Medication side effect fact sheet provided.
== END 2022-08-08 17:11 | disposition home or self-care (01) ==
LOC: SED 13:14
DX: K59.00 Constipation, unspecified (principal); R10.31 Right lower quadrant pain; J45.909 Unspecified asthma, uncomplicated; I10 Essential (primary) hypertension; E78.5 Hyperlipidemia, unspecified; Z88.0 Allergy status to penicillin; Z88.1 Allergy status to other antibiotic agents; Z88.8 Allergy status to other drugs, medicaments and biological substances; Z79.899 Other long term (current) drug therapy
CPT/HCPCS: 99284; 74176; 96360; 80053; 85025; 36415; 76376; 81003; J7030

== ENCOUNTER 2022-09-25 09:02 | Emergency (ER) | payer OTHER, MEDICAID ==
[~2022-09-25] VITALS: Ht 160 cm; Wt 76.2 kg
[~2022-09-25 09:02] MED LIST changes: +MOM PO
[2022-09-25 09:13] VITALS: BP_SYST 136
[2022-09-25] MEDS ORDERED: IBUPROFEN 600 MG TABLET PO ONE (09:15)
[2022-09-25] MEDS ORDERED: HYDROcodone/ACETAMIN 7.5-325 MG TAB PO ONE (09:15)
[2022-09-25] MEDS ORDERED: TRAM50TA2 PO (10:14)
[2022-09-25] MEDS ORDERED: IBUP-1969 PO (10:14)
== END 2022-09-25 10:19 | disposition home or self-care (01) ==
LOC: SED 09:02
DX: S13.4XXA Sprain of ligaments of cervical spine, initial encounter (principal); S43.401A Unspecified sprain of right shoulder joint, initial encounter; I10 Essential (primary) hypertension; E78.5 Hyperlipidemia, unspecified; J45.909 Unspecified asthma, uncomplicated; Z88.0 Allergy status to penicillin; Z88.1 Allergy status to other antibiotic agents; Z88.8 Allergy status to other drugs, medicaments and biological substances; V89.2XXA Person injured in unspecified motor-vehicle accident, traffic, initial encounter; Y93.89 Activity, other specified; Y92.89 Other specified places as the place of occurrence of the external cause; Y99.8 Other external cause status
CPT/HCPCS: 72040-TC; 73030; 99284

== ENCOUNTER 2022-10-14 01:05 | Emergency (ER) | payer OTHER, MEDICAID ==
[~2022-10-14] VITALS: Ht 162.6 cm; Wt 81.6 kg
[~2022-10-14 01:05] MED LIST changes: +TRAM50TA2 PO
[2022-10-14 01:29] VITALS: BP_SYST 163
--- NOTE | 2022-10-14 01:31 | NUR ---
Patient triaged and placed in waiting room. VS checked and patient appears in no acute distress at this time. Accompanied by self, awaiting available bed, and MD notified of need for MSE.
--- NOTE | 2022-10-14 01:52 | NUR ---
Patient placed in Triage room for MD evaluation.
--- NOTE | 2022-10-14 01:53 | NUR ---
Dr. Alcazar in triage room examining the patient.
[2022-10-14] MEDS ORDERED: CYCL10TA24 PO (01:58)
[2022-10-14] MEDS ORDERED: NAPR-688 PO (01:58)
[2022-10-14] MEDS ORDERED: LIDOINT TP (01:58)
[2022-10-14] MEDS ORDERED: ACET-2634 PO (01:58)
[2022-10-14] MEDS ORDERED: CYCLOBENZAPRINE HCL 10 MG TABLET (FLEXERIL) PO ONE (02:00)
[2022-10-14] MEDS ORDERED: KETOROLAC TROMETHAMINE 15 MG VIAL IM ONE (02:00)
[2022-10-14] MEDS ORDERED: LIDOCAINE PATCH 5% 1 EA TP ONE (02:00)
[2022-10-14] MEDS ORDERED: ACETAMINOPHEN 500 MG TABLET PO ONE (02:00)
--- NOTE | 2022-10-14 02:13 | NUR ---
Patient given written and verbal discharge instructions and verbalizes understanding. ER MD discussed with patient the results and treatment provided. Patient in stable condition. ID arm band removed. Rx of ACETAMINOPHEN, CYCLOBENZAPRINE, LIDOCAINE, NAPROXEN given. Patient educated on pain management and to follow up with PMD. Pain Scale 5/10. Opportunity for questions provided and answered. Medication side effect fact sheet provided.
== END 2022-10-14 02:13 | disposition home or self-care (01) ==
LOC: SED 01:05
DX: S16.1XXA Strain of muscle, fascia and tendon at neck level, initial encounter (principal); J45.909 Unspecified asthma, uncomplicated; I10 Essential (primary) hypertension; Z88.0 Allergy status to penicillin; Z88.1 Allergy status to other antibiotic agents; Z88.8 Allergy status to other drugs, medicaments and biological substances; Z79.899 Other long term (current) drug therapy; V89.2XXA Person injured in unspecified motor-vehicle accident, traffic, initial encounter; Y93.89 Activity, other specified; Y92.89 Other specified places as the place of occurrence of the external cause; Y99.8 Other external cause status
CPT/HCPCS: 99284; 96372; J1885

== ENCOUNTER 2022-12-11 17:53 | Emergency (ER) | payer OTHER, MEDICAID ==
[~2022-12-11] VITALS: Ht 167.6 cm; Wt 77.1 kg
[~2022-12-11 17:53] MED LIST changes: +ACET-2634 PO; +CYCL10TA24 PO; +LIDOINT TP; +NAPR-688 PO
[2022-12-11 17:58] VITALS: BP_SYST 140; PULSE 80; RESP 18; TEMP 98.3; O2SAT 98
[2022-12-11] MEDS ORDERED: KETOROLAC TROMETHAMINE 15 MG VIAL IM ONE (18:30)
--- NOTE | 2022-12-11 18:34 | NUR ---
In ER bed 5 C/O C/P EKG and labs done Awaiting results
[2022-12-11 18:47] LABS: BASOPHILS # (AUTO) 0.1 K/uL (0.0-0.2); BASOPHILS % (AUTO) 0.5 % (0.0-2.0); EOSINOPHILS # (AUTO) 0.3 K/uL (0.0-0.4); EOSINOPHILS % (AUTO) 2.5 % (0.0-4.0); HEMATOCRIT 40.7 % (36-48); HEMOGLOBIN 13.4 g/dL (12.0-16.0); MEAN CORPUSCULAR HEMOGLOBIN 27 pg (27-31); MEAN CORPUSCULAR HGB CONC 33 % (32-36); MEAN CORPUSCULAR VOLUME 81 fL (79.0-98.0); MONOCYTES # (AUTO) 0.7 K/uL (0.0-1.0); MONOCYTES % (AUTO) 5.7 % (1.7-9.3); NEUTROPHILS # (AUTO) 8.9 K/uL (1.8-7.7); NEUTROPHILS % (AUTO) 68.3 % (40.0-70.0); PLATELET COUNT (AUTO) 350 K/uL (130-430); RED BLOOD CELL COUNT(AUTO) 5.05 MIL/uL (4.2-6.2); WHITE BLOOD COUNT (AUTO) 13.1 K/uL (4.8-10.8)
[2022-12-11] MEDS ORDERED: KETOROLAC TROMETHAMINE 15 MG VIAL ONE (18:56)
[2022-12-11] MEDS ORDERED: IBUPROFEN 600 MG TABLET PO ONE (19:00)
[2022-12-11] MEDS ORDERED: ACETAMINOPHEN 325 MG TABLET PO ONE (19:00)
[2022-12-11 19:01] LABS: ALANINE AMINOTRANSFERASE 30 U/L (12-78); ANION GAP 10 (5-15); ASPARTATE AMINOTRANSFERASE 19 U/L (10-37); CALCIUM 9.2 mg/dL (8.4-11.0); CHLORIDE 105 mmol/L (98-107); CREATININE 0.86 mg/dL (0.55-1.30); GFR AFRICAN AMERICAN 87 mL/min (>90); GLUCOSE 96 mg/dL (74-106); TOTAL BILIRUBIN 0.5 mg/dL (0.0-1.0); UREA NITROGEN, BLOOD 18 mg/dL (8-21)
--- NOTE | 2022-12-11 19:14 | NUR ---
RECIEVED REPORT FROM MARIE TELLEZ. PT RESTING COMFORTABLY IN BED VSS
--- NOTE | 2022-12-11 19:20 | NUR ---
ER at bedside examining patient.
[2022-12-11] MEDS ORDERED: ASPIRIN 325 MG TABLET PO ONE (19:30)
--- NOTE | 2022-12-11 21:13 | NUR ---
ER at bedside examining patient.
[2022-12-11] MEDS ORDERED: IBUP-1969 PO (21:15)
[2022-12-11 21:26] VITALS: BP_SYST 134; PULSE 57; RESP 20; TEMP 98.3; O2SAT 98
--- NOTE | 2022-12-11 21:29 | NUR ---
Patient given written and verbal discharge instructions and verbalizes understanding. ER MD discussed with patient the results and treatment provided. Patient in stable condition. ID arm band removed. Rx of IBUPROFEN given. Patient educated on NONSPECIFIC CHEST PAIN, GENERAL HALL WITHOUT CAUSE, AND SOB and to follow up with PMD. Pain Scale . Opportunity for questions provided and answered. Medication side effect fact sheet provided.
== END 2022-12-11 21:26 | disposition home or self-care (01) ==
LOC: SED 17:53
DX: R07.9 Chest pain, unspecified (principal); R51.9 Headache, unspecified; R06.02 Shortness of breath; J45.909 Unspecified asthma, uncomplicated; I10 Essential (primary) hypertension; E78.5 Hyperlipidemia, unspecified; Z88.0 Allergy status to penicillin; Z88.1 Allergy status to other antibiotic agents; Z88.8 Allergy status to other drugs, medicaments and biological substances; Z79.899 Other long term (current) drug therapy
CPT/HCPCS: 99285; 71045; 80053; 85025; 84484; 36415; 93005; J1885

== ENCOUNTER 2023-02-26 09:55 | Emergency (ER) | payer OTHER, MEDICAID ==
[~2023-02-26] VITALS: Ht 157.5 cm; Wt 72.6 kg
[2023-02-26 10:00] VITALS: BP_SYST 159; PULSE 63; RESP 20; TEMP 97.6; O2SAT 99
[2023-02-26] MEDS ORDERED: HYDROcodone/ACETAMIN 10-325 MG TAB PO ONE (10:15)
[2023-02-26] MEDS ORDERED: IBUPROFEN 800 MG TABLET PO ONE (10:15)
[2023-02-26 10:49] LABS: BASOPHILS # (AUTO) 0.1 K/uL (0.0-0.2); BASOPHILS % (AUTO) 0.6 % (0.0-2.0); EOSINOPHILS # (AUTO) 0.3 K/uL (0.0-0.4); EOSINOPHILS % (AUTO) 2.9 % (0.0-4.0); HEMATOCRIT 39.8 % (36-48); HEMOGLOBIN 13.1 g/dL (12.0-16.0); LYMPHOCYTES # (AUTO) 2.7 K/uL (1.0-5.5); LYMPHOCYTES % (AUTO) 24.9 % (20.5-51.5); MEAN CORPUSCULAR HEMOGLOBIN 27 pg (27-31); MEAN CORPUSCULAR HGB CONC 33 % (32-36); MEAN CORPUSCULAR VOLUME 81 fL (79.0-98.0); MONOCYTES # (AUTO) 0.5 K/uL (0.0-1.0); MONOCYTES % (AUTO) 4.9 % (1.7-9.3); NEUTROPHILS # (AUTO) 7.2 K/uL (1.8-7.7); NEUTROPHILS % (AUTO) 66.7 % (40.0-70.0); PLATELET COUNT (AUTO) 318 K/uL (130-430); RED CELL DISTRIBUTION WIDTH 13.7 % (9.0-15.0); WHITE BLOOD COUNT (AUTO) 10.8 K/uL (4.8-10.8)
[2023-02-26 11:17] LABS: CALCIUM 8.9 mg/dL (8.4-11.0); CREATININE 0.63 mg/dL (0.55-1.30); POTASSIUM 4.6 mmol/L (3.5-5.1)
[2023-02-26 11:32] LABS: ALBUMIN 3.6 g/dL (3.4-4.8); TOTAL BILIRUBIN 0.3 mg/dL (0.0-1.0)
[2023-02-26] MEDS ORDERED: IBUP-1969 PO (12:00)
[2023-02-26] MEDS ORDERED: TRAM50TA2 PO (12:00)
[2023-02-26 12:52] VITALS: BP_SYST 159; PULSE 63; RESP 20; TEMP 97.6; O2SAT 99
== END 2023-02-26 12:52 | disposition home or self-care (01) ==
LOC: SED 09:55
DX: R51.9 Headache, unspecified (principal); R11.0 Nausea; J45.909 Unspecified asthma, uncomplicated; I10 Essential (primary) hypertension; E78.5 Hyperlipidemia, unspecified; Z88.0 Allergy status to penicillin; Z88.1 Allergy status to other antibiotic agents; Z88.8 Allergy status to other drugs, medicaments and biological substances; Z79.899 Other long term (current) drug therapy
CPT/HCPCS: 36415; 70450-TC; 76376; 80053; 85025; 99284

== ENCOUNTER 2023-04-09 17:07 | Emergency (ER) | payer OTHER, MEDICAID ==
[~2023-04-09] VITALS: Ht 162.6 cm; Wt 74.8 kg
[2023-04-09 17:26] VITALS: BP_SYST 148; PULSE 85; RESP 18; TEMP 97.8; O2SAT 97
[2023-04-09] MEDS ORDERED: iohexoL 350 mgI/mL, 100 ML INFUS..BTL IV ONE (17:51)
[2023-04-09 18:13] LABS: BASOPHILS % (AUTO) 0.4 % (0.0-2.0); EOSINOPHILS # (AUTO) 0.4 K/uL (0.0-0.4); EOSINOPHILS % (AUTO) 3.9 % (0.0-4.0); HEMATOCRIT 38.7 % (36-48); HEMOGLOBIN 13.1 g/dL (12.0-16.0); LYMPHOCYTES # (AUTO) 2.5 K/uL (1.0-5.5); LYMPHOCYTES % (AUTO) 22.7 % (20.5-51.5); MEAN CORPUSCULAR HEMOGLOBIN 28 pg (27-31); MEAN CORPUSCULAR HGB CONC 34 % (32-36); MEAN CORPUSCULAR VOLUME 82 fL (79.0-98.0); MONOCYTES # (AUTO) 0.5 K/uL (0.0-1.0); MONOCYTES % (AUTO) 4.1 % (1.7-9.3); NEUTROPHILS # (AUTO) 7.7 K/uL (1.8-7.7); NEUTROPHILS % (AUTO) 68.9 % (40.0-70.0); PLATELET COUNT (AUTO) 328 K/uL (130-430); RED BLOOD CELL COUNT(AUTO) 4.73 MIL/uL (4.2-6.2); RED CELL DISTRIBUTION WIDTH 13.4 % (9.0-15.0); WHITE BLOOD COUNT (AUTO) 11.2 K/uL (4.8-10.8)
[2023-04-09 18:22] LABS: CALCIUM 9.2 mg/dL (8.4-11.0); CREATININE 0.63 mg/dL (0.55-1.30)
[2023-04-09 18:29] LABS: POTASSIUM 3.4 mmol/L (3.5-5.1)
[2023-04-09] MEDS ORDERED: KETOROLAC TROMETHAMINE 30 MG VIAL IVP ONE (20:00)
[2023-04-09] MEDS ORDERED: NACL 0.9% 1,000 ML IV ONE (20:00)
[2023-04-09] MEDS ORDERED: IBUP-1969 PO (20:43)
== END 2023-04-09 21:10 | disposition home or self-care (01) ==
LOC: SED 17:07
DX: R07.89 Other chest pain (principal); I10 Essential (primary) hypertension; R51.9 Headache, unspecified; J45.909 Unspecified asthma, uncomplicated; E78.5 Hyperlipidemia, unspecified; Z88.0 Allergy status to penicillin; Z88.1 Allergy status to other antibiotic agents; Z88.8 Allergy status to other drugs, medicaments and biological substances; Z79.899 Other long term (current) drug therapy
CPT/HCPCS: 99285; 70496; 96374; 71045; 96361; 80048; 83880; 85025; 84484; 36415; 93005; 70498; 70450; 76376; Q9967; J1885; J7030

== ENCOUNTER 2023-05-20 20:48 | Inpatient (IN) | payer OTHER, MEDICAID ==
[~2023-05-20] VITALS: Ht 162.6 cm; Wt 76.2 kg
[2023-05-20 20:53] VITALS: BP_SYST 163; PULSE 79; RESP 20; TEMP 97.6; O2SAT 99
[2023-05-20 21:42] LABS: BASOPHILS % (AUTO) 0.4 % (0.0-2.0); EOSINOPHILS # (AUTO) 0.6 K/uL (0.0-0.4); EOSINOPHILS % (AUTO) 4.7 % (0.0-4.0); HEMATOCRIT 39.3 % (36-48); HEMOGLOBIN 13.3 g/dL (12.0-16.0); LYMPHOCYTES # (AUTO) 3.6 K/uL (1.0-5.5); LYMPHOCYTES % (AUTO) 29.6 % (20.5-51.5); MEAN CORPUSCULAR HEMOGLOBIN 28 pg (27-31); MEAN CORPUSCULAR HGB CONC 34 % (32-36); MEAN CORPUSCULAR VOLUME 82 fL (79.0-98.0); MONOCYTES # (AUTO) 0.7 K/uL (0.0-1.0); MONOCYTES % (AUTO) 5.4 % (1.7-9.3); NEUTROPHILS # (AUTO) 7.2 K/uL (1.8-7.7); NEUTROPHILS % (AUTO) 59.9 % (40.0-70.0); PLATELET COUNT (AUTO) 339 K/uL (130-430); RED BLOOD CELL COUNT(AUTO) 4.83 MIL/uL (4.2-6.2)
[2023-05-20 21:50] LABS: ANION GAP 6 (5-15); CALCIUM 8.9 mg/dL (8.4-11.0); CARBON DIOXIDE 27 mmol/L (23-29); CHLORIDE 106 mmol/L (98-107); CREATININE 0.53 mg/dL (0.55-1.30); GFR AFRICAN AMERICAN 151 mL/min (>90); GLUCOSE 97 mg/dL (74-106); POTASSIUM 4.2 mmol/L (3.5-5.1); SODIUM SERUM 139 mmol/L (136-145); UREA NITROGEN, BLOOD 12 mg/dL (8-21)
[2023-05-20 21:52] LABS: GFR NON AFRICAN-AMERICAN 125 mL/min (>90)
[2023-05-20 21:54] LABS: ALANINE AMINOTRANSFERASE 27 U/L (12-78); ALBUMIN 3.4 g/dL (3.4-4.8); ASPARTATE AMINOTRANSFERASE 12 U/L (10-37); BILIRUBIN,DIRECT < 0.1 mg/dL (0.0-0.3); TOTAL BILIRUBIN 0.1 mg/dL (0.0-1.0); TOTAL PROTEIN, SERUM 6.7 g/dL (6.4-8.3)
[2023-05-21] MEDS ORDERED: MORPHINE 4 MG INJ. 4 MG/ML VIAL IVP PRN (03:15)
[2023-05-21] MEDS ORDERED: LOVA20TA2 PO (03:17)
[2023-05-21] MEDS ORDERED: ASA81 PO (03:17)
[2023-05-21] MEDS ORDERED: NITROGLYCERIN 0.4 MG TAB.SUBL SL ONE (03:45)
[2023-05-21] MEDS ORDERED: ASPIRIN 325 MG TABLET PO ONE (04:00)
[2023-05-21 05:09] LABS: BILIRUBIN,URINE NEGATIVE (NEGATIVE); BLOOD, URINE NEGATIVE (NEGATIVE); CLARITY/URINE CLEAR (CLEAR); COLOR,URINE YELLOW (YELLOW); GLUCOSE,URINE NEGATIVE (NEGATIVE); KETONES,URINE NEGATIVE (NEGATIVE); LEUKOCYTE ESTERASE ,URINE 1+ (NEGATIVE); NITRITE, URINE NEGATIVE (NEGATIVE); PROTEIN URINE NEGATIVE (NEGATIVE); UROBILINOGEN,URINE 0.2 (0.2-1.0)
[2023-05-21 05:29] LABS: BARBITURATE, URINE NEGATIVE (NEG <=200); METHAMPHETAMINES SCREEN,URINE NEGATIVE (NEG <=500); URINE AMPHETAMINE NEGATIVE (NEG <=500); URINE METHADONE NEGATIVE (NEG <=200)
[2023-05-21 05:30] LABS: BENZODIAZEPINE, URINE NEGATIVE (NEG <=150); CANNABINOID, URINE NEGATIVE (NEG <=50); COCAINE, URINE NEGATIVE (NEG <=150); OPIATE, URINE NEGATIVE (NEG <=100); PHENCYCLIDINE SCREEN,URINE NEGATIVE (NEG <=25); UR TRICYCLIC ANTIDEPRESSANTS NEGATIVE (NEG <=300); URINE OXYCODONE SCREEN NEGATIVE (NEG <=100)
[2023-05-21 05:43] LABS: BACTERIA,URINE None Seen /HPF (None Seen)
[2023-05-21] MEDS: ASPIRIN 81 MG TAB.CHEW PO SCH (09:00)
[2023-05-21] MEDS ORDERED: amLODIPine BESYLATE 10 MG TABLET PO ONE (12:30)
[2023-05-21] MEDS ORDERED: LOVASTATIN 20 MG TABLET PO SCH (18:00)
[2023-05-21 21:18] VITALS: BP_SYST 150; PULSE 58; RESP 18; TEMP 97.8
[2023-05-21] MEDS ORDERED: QUET400T PO (22:11)
[2023-05-21] MEDS ORDERED: BUPR-120 PO (22:11)
[2023-05-22] VITALS: BP_SYST 139; PULSE 76; RESP 18; TEMP 97.8; O2SAT 99
[2023-05-22] MEDS ORDERED: QUEtiapine FUMARATE 100 MG TABLET PO ONE (00:15)
[2023-05-22] MEDS ORDERED: buPROPion HCL 150 MG XL TAB PO ONE (00:15)
[2023-05-22 08:05] VITALS: BP_SYST 126; PULSE 71; RESP 18; TEMP 97.1; O2SAT 98
[2023-05-22] MEDS: ASPIRIN 81 MG TAB.CHEW PO SCH (08:57)
[2023-05-22] MEDS ORDERED: ASPIRIN 81 MG TAB.CHEW PO SCH (09:00)
[2023-05-22] MEDS ORDERED: METOPROLOL SUCCINATE 25 MG TAB.SR.24H (TOPROL XL) PO SCH (09:00)
[2023-05-22] MEDS ORDERED: amLODIPine BESYLATE 10 MG TABLET PO SCH (09:00)
[2023-05-22] MEDS ORDERED: ATORVASTATIN 20 MG TABLET PO SCH (09:00)
[2023-05-22 11:00] VITALS: O2SAT 98
[2023-05-22 11:17] LABS: BASOPHILS # (AUTO) 0.1 K/uL (0.0-0.2); BASOPHILS % (AUTO) 0.7 % (0.0-2.0); EOSINOPHILS # (AUTO) 0.5 K/uL (0.0-0.4); EOSINOPHILS % (AUTO) 5.3 % (0.0-4.0); HEMATOCRIT 40.3 % (36-48); HEMOGLOBIN 13.3 g/dL (12.0-16.0); LYMPHOCYTES # (AUTO) 2.3 K/uL (1.0-5.5); LYMPHOCYTES % (AUTO) 22.3 % (20.5-51.5); MEAN CORPUSCULAR HEMOGLOBIN 27 pg (27-31); MEAN CORPUSCULAR HGB CONC 33 % (32-36); MEAN CORPUSCULAR VOLUME 81 fL (79.0-98.0); MONOCYTES # (AUTO) 0.6 K/uL (0.0-1.0); MONOCYTES % (AUTO) 5.5 % (1.7-9.3); NEUTROPHILS # (AUTO) 6.7 K/uL (1.8-7.7); NEUTROPHILS % (AUTO) 66.2 % (40.0-70.0); PLATELET COUNT (AUTO) 362 K/uL (130-430); RED BLOOD CELL COUNT(AUTO) 4.98 MIL/uL (4.2-6.2); RED CELL DISTRIBUTION WIDTH 12.9 % (9.0-15.0); WHITE BLOOD COUNT (AUTO) 10.2 K/uL (4.8-10.8)
[2023-05-22 11:25] LABS: CALCIUM 9.1 mg/dL (8.4-11.0); CREATININE 0.54 mg/dL (0.55-1.30); POTASSIUM 3.9 mmol/L (3.5-5.1)
== END 2023-05-22 15:50 | disposition left against medical advice (07) | DRG 153 ==
LOC: SED 20:48 → STU 05-21 03:08 → SMU 05-22 10:59
PROVIDERS: ADMIT Internal Medicine; ATTEND Internal Medicine
DX: J06.9 Acute upper respiratory infection, unspecified (principal); I24.89 Other forms of acute ischemic heart disease; N39.0 Urinary tract infection, site not specified; E78.5 Hyperlipidemia, unspecified; I10 Essential (primary) hypertension; F31.9 Bipolar disorder, unspecified; Z86.711 Personal history of pulmonary embolism; Z88.0 Allergy status to penicillin; B34.9 Viral infection, unspecified
CPT/HCPCS: 36415; 70450-TC; 71045; 76376; 80048; 80076; 80307; 81000; 81001; 81015; 83880; 84484; 85025; 85379; 93005; 93306; 96365; 99285; G0378; J1956

== ENCOUNTER 2023-10-16 17:23 | Emergency (ER) | payer OTHER, MEDICAID ==
[~2023-10-16] VITALS: Ht 162.6 cm; Wt 79.4 kg
[~2023-10-16 17:23] MED LIST changes: -ACET-2634 PO; +ASA81 PO; -ASPI-862 PO; -BACL20TA PO; +BUPR-120 PO; -CYCL10TA24 PO; -DICL75TA5 PO; -HYDR-3917 PO; -IBUP-1969 PO; -LIDOINT TP; +LOVA20TA2 PO; -MOM PO; -NAPR-688 PO; -NAPR-690 PO; -TRAM50TA2 PO; -WELSR100 PO
[2023-10-16 17:27] VITALS: BP_SYST 166; PULSE 77; RESP 18; TEMP 98.3; O2SAT 95
[2023-10-16] MEDS: IBUPROFEN 600 MG TABLET PO ONE (21:57)
[2023-10-16] MEDS: KETOROLAC TROMETHAMINE 30 MG VIAL IM ONE (21:58)
[2023-10-16] MEDS ORDERED: IBUP-1969 PO (22:26)
[2023-10-16] MEDS ORDERED: DICL20GE TP (22:26)
[2023-10-16] MEDS ORDERED: LIDO1ADH22 TP (22:26)
[2023-10-16] MEDS: LIDOCAINE PATCH 5% 1 EA TP ONE (22:36)
== END 2023-10-16 22:44 | disposition home or self-care (01) ==
LOC: SED 17:23
DX: S50.01XA Contusion of right elbow, initial encounter (principal); S40.011A Contusion of right shoulder, initial encounter; J45.909 Unspecified asthma, uncomplicated; I10 Essential (primary) hypertension; Z88.0 Allergy status to penicillin; Z88.1 Allergy status to other antibiotic agents; Z88.8 Allergy status to other drugs, medicaments and biological substances; W19.XXXA Unspecified fall, initial encounter; Y93.89 Activity, other specified; Y92.89 Other specified places as the place of occurrence of the external cause; Y99.8 Other external cause status
CPT/HCPCS: 99284; 73030; 73060; 73080; J1885

== ENCOUNTER 2023-11-01 19:22 | Inpatient (IN) | payer OTHER, MEDICAID ==
[~2023-11-01] VITALS: Ht 162.6 cm; Wt 75.7 kg
[~2023-11-01 19:22] MED LIST changes: +DICL20GE TP; +IBUP-1969 PO; +LIDO1ADH22 TP
[2023-11-01 19:29] VITALS: BP_SYST 171; PULSE 75; RESP 20; TEMP 98.1; O2SAT 98
[2023-11-01 20:16] LABS: BASOPHILS # (AUTO) 0.1 K/uL (0.0-0.2); BASOPHILS % (AUTO) 0.4 % (0.0-2.0); EOSINOPHILS # (AUTO) 0.4 K/uL (0.0-0.4); EOSINOPHILS % (AUTO) 3.6 % (0.0-4.0); HEMATOCRIT 35.8 % (36-48); HEMOGLOBIN 12.2 g/dL (12.0-16.0); LYMPHOCYTES # (AUTO) 2.7 K/uL (1.0-5.5); LYMPHOCYTES % (AUTO) 23.5 % (20.5-51.5); MEAN CORPUSCULAR HEMOGLOBIN 26 pg (27-31); MEAN CORPUSCULAR HGB CONC 34 % (32-36); MEAN CORPUSCULAR VOLUME 77 fL (79.0-98.0); MONOCYTES # (AUTO) 0.7 K/uL (0.0-1.0); MONOCYTES % (AUTO) 6.2 % (1.7-9.3); NEUTROPHILS # (AUTO) 7.5 K/uL (1.8-7.7); NEUTROPHILS % (AUTO) 66.3 % (40.0-70.0); PLATELET COUNT (AUTO) 310 K/uL (130-430); RED BLOOD CELL COUNT(AUTO) 4.63 MIL/uL (4.2-6.2); RED CELL DISTRIBUTION WIDTH 13.8 % (9.0-15.0); WHITE BLOOD COUNT (AUTO) 11.4 K/uL (4.8-10.8)
[2023-11-01 20:20] LABS: CALCIUM 9.1 mg/dL (8.4-11.0); CREATININE 0.58 mg/dL (0.55-1.30); POTASSIUM 3.8 mmol/L (3.5-5.1)
[2023-11-01 20:39] LABS: BARBITURATE, URINE NEGATIVE (NEG <=200); BENZODIAZEPINE, URINE NEGATIVE (NEG <=150); CANNABINOID, URINE NEGATIVE (NEG <=50); COCAINE, URINE NEGATIVE (NEG <=150); METHAMPHETAMINES SCREEN,URINE NEGATIVE (NEG <=500); OPIATE, URINE NEGATIVE (NEG <=100); PHENCYCLIDINE SCREEN,URINE NEGATIVE (NEG <=25); UR TRICYCLIC ANTIDEPRESSANTS NEGATIVE (NEG <=300); URINE AMPHETAMINE NEGATIVE (NEG <=500); URINE METHADONE NEGATIVE (NEG <=200); URINE OXYCODONE SCREEN NEGATIVE (NEG <=100)
[2023-11-01 20:44] LABS: PROTHROMBIN TIME 10.4 SECS (9.5-12.5)
[2023-11-01] MEDS ORDERED: ARIP10TA9 PO (22:17)
[2023-11-01] MEDS ORDERED: ONDANSETRON HCL 4 MG/2 ML VIAL IVP PRN (23:15)
[2023-11-01] MEDS ORDERED: HYDROcodone/ACETAMIN 10-325 MG TAB PO PRN (23:15)
[2023-11-01] MEDS ORDERED: ACETAMINOPHEN 325 MG TABLET PO PRN (23:15)
[2023-11-01] MEDS ORDERED: HYDROcodone/ACETAMIN 5-325 MG TAB (NORCO/ VICODIN) PO PRN (23:15)
[2023-11-01] MEDS ORDERED: NALOXONE HCL 0.4 MG/ML AMP (NARCAN) IVP PRN ×2 (23:15)
[2023-11-01] MEDS ORDERED: LORazepam 2 MG/ML VIAL IVP PRN (23:15)
[2023-11-01 23:30] VITALS: BP_SYST 149; PULSE 61; RESP 16; TEMP 96.9
[2023-11-01 23:45] VITALS: O2SAT 98
[2023-11-02 05:13] LABS: BASOPHILS % (AUTO) 0.5 % (0.0-2.0); EOSINOPHILS # (AUTO) 0.5 K/uL (0.0-0.4); HEMATOCRIT 34.8 % (36-48); LYMPHOCYTES # (AUTO) 2.2 K/uL (1.0-5.5); LYMPHOCYTES % (AUTO) 23.4 % (20.5-51.5); MEAN CORPUSCULAR HEMOGLOBIN 27 pg (27-31); MEAN CORPUSCULAR HGB CONC 35 % (32-36); MEAN CORPUSCULAR VOLUME 78 fL (79.0-98.0); MONOCYTES # (AUTO) 0.5 K/uL (0.0-1.0); MONOCYTES % (AUTO) 5.6 % (1.7-9.3); NEUTROPHILS # (AUTO) 6.2 K/uL (1.8-7.7); NEUTROPHILS % (AUTO) 65.5 % (40.0-70.0); PLATELET COUNT (AUTO) 307 K/uL (130-430); RED BLOOD CELL COUNT(AUTO) 4.47 MIL/uL (4.2-6.2); RED CELL DISTRIBUTION WIDTH 13.9 % (9.0-15.0); WHITE BLOOD COUNT (AUTO) 9.5 K/uL (4.8-10.8)
[2023-11-02 05:34] LABS: CALCIUM 8.8 mg/dL (8.4-11.0); CREATININE 0.56 mg/dL (0.55-1.30); POTASSIUM 3.4 mmol/L (3.5-5.1)
[2023-11-02] MEDS: NORMAL SALINE 5 ML DISP.SYRIN IVF SCH (06:42)
[2023-11-02 08:51] VITALS: BP_SYST 144; PULSE 77; RESP 18; TEMP 97.4; O2SAT 98
[2023-11-02] MEDS: ARIPiprazole 5 MG TAB PO SCH (09:00)
[2023-11-02] MEDS: ASPIRIN 81 MG TAB.CHEW PO SCH (09:00)
[2023-11-02] MEDS: METOPROLOL SUCCINATE 25 MG TAB.SR.24H (TOPROL XL) PO SCH (09:01)
[2023-11-02 11:21] VITALS: BP_SYST 138; PULSE 60; RESP 18; TEMP 97.6; O2SAT 98
[2023-11-02 14:58] VITALS: BP_SYST 128; PULSE 73; RESP 18; TEMP 97; O2SAT 95
[2023-11-02 16:24] VITALS: BP_SYST 137; PULSE 65; RESP 18; TEMP 97.6; O2SAT 98
[2023-11-02] MEDS ORDERED: LOVASTATIN 20 MG TABLET PO SCH (18:00)
[2023-11-02] MEDS: ATORVASTATIN 10 MG TABLET PO SCH (19:51)
[2023-11-02 20:00] VITALS: BP_SYST 147; PULSE 65; RESP 18; TEMP 97.8; O2SAT 96
[2023-11-03] VITALS: BP_SYST 144; PULSE 64; RESP 18; TEMP 97.4; O2SAT 98
[2023-11-03 04:51] LABS: BASOPHILS % (AUTO) 0.3 % (0.0-2.0); EOSINOPHILS # (AUTO) 0.6 K/uL (0.0-0.4); EOSINOPHILS % (AUTO) 6.4 % (0.0-4.0); HEMOGLOBIN 12.4 g/dL (12.0-16.0); LYMPHOCYTES # (AUTO) 2.4 K/uL (1.0-5.5); LYMPHOCYTES % (AUTO) 24.7 % (20.5-51.5); MEAN CORPUSCULAR HEMOGLOBIN 27 pg (27-31); MEAN CORPUSCULAR HGB CONC 35 % (32-36); MEAN CORPUSCULAR VOLUME 78 fL (79.0-98.0); MONOCYTES # (AUTO) 0.6 K/uL (0.0-1.0); MONOCYTES % (AUTO) 6.1 % (1.7-9.3); NEUTROPHILS # (AUTO) 6.1 K/uL (1.8-7.7); NEUTROPHILS % (AUTO) 62.5 % (40.0-70.0); PLATELET COUNT (AUTO) 318 K/uL (130-430); RED BLOOD CELL COUNT(AUTO) 4.63 MIL/uL (4.2-6.2); RED CELL DISTRIBUTION WIDTH 13.6 % (9.0-15.0); WHITE BLOOD COUNT (AUTO) 9.8 K/uL (4.8-10.8)
[2023-11-03 05:21] LABS: ALANINE AMINOTRANSFERASE 18 U/L (12-78); ALBUMIN 2.9 g/dL (3.4-4.8); ANION GAP 11 (5-15); ASPARTATE AMINOTRANSFERASE < 5 U/L (10-37); CALCIUM 8.8 mg/dL (8.4-11.0); CARBON DIOXIDE 24 mmol/L (23-29); CHLORIDE 106 mmol/L (98-107); CREATININE 0.65 mg/dL (0.55-1.30); GFR AFRICAN AMERICAN 119 mL/min (>90); GLUCOSE 95 mg/dL (74-106); POTASSIUM 3.9 mmol/L (3.5-5.1); SODIUM SERUM 141 mmol/L (136-145); TOTAL BILIRUBIN 0.3 mg/dL (0.0-1.0); TOTAL PROTEIN, SERUM 6.5 g/dL (6.4-8.3); UREA NITROGEN, BLOOD 16 mg/dL (8-21)
[2023-11-03 05:35] LABS: GFR NON AFRICAN-AMERICAN 98 mL/min (>90)
[2023-11-03 08:06] VITALS: BP_SYST 153; PULSE 57; RESP 17; TEMP 98.2; O2SAT 97
[2023-11-03 11:55] VITALS: BP_SYST 150; PULSE 62; RESP 18; TEMP 97; O2SAT 96
[2023-11-03 12:32] VITALS: BP_SYST 154; PULSE 62; RESP 18; TEMP 98.2; O2SAT 99
== END 2023-11-03 12:50 | disposition home or self-care (01) | DRG 69 ==
LOC: SED 19:22 → STU 21:39
PROVIDERS: ADMIT Preventive Medicine Preventive Medicine/Occupational Environmental Medicine; ATTEND Preventive Medicine Preventive Medicine/Occupational Environmental Medicine
DX: G45.9 Transient cerebral ischemic attack, unspecified (principal); I16.0 Hypertensive urgency; I25.10 Atherosclerotic heart disease of native coronary artery without angina pectoris; E88.09 Other disorders of plasma-protein metabolism, not elsewhere classified; E78.5 Hyperlipidemia, unspecified; J45.909 Unspecified asthma, uncomplicated; D72.829 Elevated white blood cell count, unspecified; I25.2 Old myocardial infarction; Z79.899 Other long term (current) drug therapy; Z88.0 Allergy status to penicillin
CPT/HCPCS: 36415; 70450-TC; 70551; 80048; 80053; 80307; 85025; 85610; 85730; 93005; 93306; 93880; 97112-GP; 97116-GP; 99285; G0378